=== PATIENT | female | born 1995 ===

== ENCOUNTER 2019-12-09 13:34 | Outpatient (REF) | payer OTHER, SELFPAY | END 2019-12-09 13:35 | disposition home or self-care (01) | LOC: HO.LAB 13:34 | PROVIDERS: Visit Provider Internal Medicine | DX: Z00.00 Encounter for general adult medical examination without abnormal findings (principal); E66.3 Overweight | CPT/HCPCS: 88142 ==

== ENCOUNTER 2020-02-22 12:49 | Outpatient (REF) | payer OTHER, SELFPAY ==
--- NOTE | 2020-02-22 12:54 | XR_ITS ---
EXAMINATION: XR LUMBOSACRAL SPINE CLINICAL INFORMATION: Spondylosis with myelopathy or radiculopathy. COMPARISON: None TECHNIQUE: Three views of the lumbosacral spine. FINDINGS: There is normal lumbar lordosis. The vertebral heights, alignment and disc heights are normal. There is mild ventral spondylosis L5-S1 disc levels. No lytic or sclerotic process seen. There is no acute fracture, dislocation or lytic process. The paravertebral soft tissues are normal. XR/XR lumbar spine 2-3V IMPRESSION: Mild ventral spondylosis L5-S1 disc level. No visible acute fracture or dislocation seen.
== END 2020-02-22 12:50 | disposition home or self-care (01) ==
LOC: HO.HMGCX 12:49
PROVIDERS: PCP Internal Medicine; Visit Provider Nurse Practitioner Family
DX: M47.16 Other spondylosis with myelopathy, lumbar region (principal); M47.26 Other spondylosis with radiculopathy, lumbar region
CPT/HCPCS: 72100

== ENCOUNTER 2021-02-15 04:16 | Emergency (ER) | payer OTHER, SELFPAY ==
--- NOTE | ~2021-02-15 | CT_ITS ---
EXAMINATION: CT SINUS WITHOUT CONTRAST CLINICAL INFORMATION: Right facial swelling over maxillary sinus COMPARISON: None TECHNIQUE: Noncontrast multidetector helical imaging was performed through the maxillofacial bones. Coronal and sagittal reformatted images were created. This CT examination was performed using dose optimization techniques as appropriate, variously including the following: *Automated exposure control *Adjustment of mA and/or kV according to patient size (this includes techniques or standardized protocols for targeted exams where dose is matched to indication/reason for exam; i.e. extremities or head) *Use of iterative reconstruction technique DLP: 145 mGy-cm FINDINGS: No acute maxillofacial fractures are seen. There is right facial swelling overlying the maxilla. There is mild mucosal thickening of the right maxillary sinus. Remaining paranasal sinuses are well-aerated. The uncinate process is normal bilaterally. The infundibula and middle meati are patent. The mandibular condyles are well-seated in the condylar fossa. The orbits demonstrate a normal appearance bilaterally. The globes are intact, and there are no suspicious findings to suggest retrobulbar hemorrhage. Visualized portions of the brain parenchyma are unremarkable. CT/CT sinus wo con IMPRESSION: No fracture identified. Right facial swelling overlying the maxilla.
[2021-02-15 04:17] VITALS: BP 144/94; PULSE 100; RESP 20; TEMP 36.5; O2SAT 97; BMI 25.7
[2021-02-15 04:52] LABS: MANUAL DIFF FLAG NO
[2021-02-15 04:53] LABS: Basophils Absolute Auto 0.1 X10*3/uL (0.0-0.2); Basophils Percent Auto 0.4 % (0-2); Eosinophils Absolute Auto 0.1 X10*3/uL (0.0-0.4); Eosinophils Percent Auto 0.6 % (0-4); Hemoglobin 12.3 g/dl (12.0-16.0); Imm Gran Abs Auto 0.01 X10*3/uL (0.00-0.03); Imm Gran Pct Auto 0.1 % (0.0-0.4); Lymphocytes Absolute Auto 4.8 X10*3/uL (1.2-4.9); Lymphocytes Percent Auto 38.4 % (20-40); Mean Corpuscular HGB Conc 31.5 g/dl (31.0-35.0); Mean Corpuscular Hemoglobin 26.1 pg (27.0-33.0); Mean Corpuscular Volume 82.8 fL (80.0-98.0); Mean Platelet Volume 10.3 fL (9.4-12.3); Monocytes Absolute Auto 0.9 X10*3/uL (0.1-1.2); Monocytes Percent Auto 6.8 % (2-11); Neutrophils Absolute Auto 6.7 x10*3/uL (2.0-8.3); Neutrophils Percent Auto 53.7 % (45-73); Platelet Count 392 X10*3/uL (160-400); Red Blood Count 4.71 X10*6/uL (4.20-5.50); Red Cell Distribution Width 13.5 % (11.0-16.0); White Blood Count 12.5 X10*3/uL (4.8-10.8)
--- NOTE | 2021-02-15 04:53 | ED.GENADULT ---
HPI - General Adult General Chief complaint: Allergic Reaction Stated complaint: ? allergic reaction, facial swelling Time Seen by Provider: 02/15/21 04:38 Source: patient Limitations: no limitations History of Present Illness HPI narrative: This is a 25-year-old female who last evening developed swelling on the right side of her face just lateral to her nose. The patient has some discomfort to the area. Patient denies any toothache. She notes that she was treated recently for sciatica at an urgent care and was put on prednisone and Flexeril. She denies any tongue or lip swelling, throat tightness, shortness of breath or wheezing. Related Data Previous Rx's Medication Instructions Recorded naproxen 250 mg tablet 250 mg PO BID PRN 30 Days #60 tab 02/22/20 cyclobenzaprine 5 mg tablet 5 mg PO TID PRN #10 tab 02/12/21 prednisone 50 mg tablet 50 mg PO DAILY 5 Days #5 tab 02/12/21 amoxicillin 875 mg-potassium 1 tab PO BID #20 tab 02/15/21 clavulanate 125 mg tablet (Augmentin) Allergies Allergy/AdvReac Type Severity Reaction Status Date / Time No Known Allergies Allergy Verified 02/15/21 04:24 Review of Systems Constitutional: Constitutional: Reports as per HPI and Denies fever(s) Eyes: Eyes: Reports no additional eye complaints ENT: Reports system reviewed and no additional complaints, except as documented Cardiovascular: Cardiovascular: Reports no additional cardiovascular complaints Respiratory: Respiratory: Reports no additional respiratory complaints Gastrointestinal: Gastrointestinal: Reports no additional gastrointestinal complaints Neurologic: Denies Sensory deficit (Neuro) [facility] Past Medical History Medical History Annual physical exam Overweight Surgical History Hx of bilateral breast reduction surgery Family History Family History Father Unknown family medical history Mother No problems noted. Maternal Uncle Diabetes mellitus Maternal Grandfather Diabetes mellitus Maternal Grandmother No problems noted. Paternal Grandfather No problems noted. Paternal Grandmother No problems noted. Sister No problems noted. Social History Social History Advance Directives: No Advance Directives Information Provided: Yes Patient : No Physical Exam Vital Signs: Vital Signs: Last Vital Signs Temp 97.7 F 02/15/21 04:17 Pulse 77 02/15/21 06:09 Resp 18 02/15/21 06:09 BP 119/81 02/15/21 06:09 Pulse Ox 100 02/15/21 06:09 BMI result Body Mass Index 25.7 Const: General: cooperative, no acute distress and alert Orientation/consciousness: patient oriented x3 HENMT: Other: Right facial swelling with some induration and focal swelling just lateral to the right side of the nose over the sinus, mild tenderness. No erythema or warmth. Head: Yes normal to inspection General nose exam: Normal external nose present Face and sinus: No normal facial exam and No face symmetric Eyes: General: appearance normal, both eyes and all related structures Eyelids: Yes eyelids normal Conjunctivae: conjunctivae normal Pupils: Equal, round and reactive pupils present Neck: Neck: Yes normal visual inspection and Yes supple Chest: Chest palpation & inspection: normal inspection of the chest Resp: Effort & Inspection: normal respiratory effort Auscultation: clear to auscultation bilaterally Cardio: Rate: regular rate Rhythm: regular rhythm Heart sounds: S1 normal heart sound present, S2 normal heart sound present, no gallops, no murmurs and no rubs GI: Palpation (GI): Soft to palpation, nontender and Other GI palpation findings present (Non-distended) Auscultation: normal bowel sounds Skin: General skin exam: no rashes or lesions noted Neuro: General: patient oriented x3, no focal motor deficits and CN's II-XI intact bilaterally Cranial nerves: Yes Equal, round and reactive pupils present Cognition (Neuro): normal cognition Motor exam (neuro): 5/5 motor strength present throughout Sensory Exam: No Sensory deficit (Neuro) Extrem: General: Yes normal to inspection and Yes no pedal edema Psych: Appearance: grossly normal Affect: normal affect Medical Decision Making MDM Narrative Medical decision making narrative: Patient with right facial swelling, lateral to her nose, with mild tenderness to the area. This appears to be a soft tissue infection, not an allergic phenomenon. Patient is actually on prednisone for sciatica. CT scan showed soft tissue swelling but no apparent fluid collection. There was mucosal thickening of the maxillary sinus on the right. Patient is being started on antibiotics-was given Rocephin 1 g IV in the ED and will be started on Augmentin hitting 5 mg p.o. b.i.d.. She is advised to use warm compresses and return for any worsening symptoms as this may be an early abscess which will later require drainage Lab Data Lab results reviewed: Yes I reviewed the patient's lab results. Result diagrams: 02/15/21 04:48 02/15/21 04:48 Labs: Lab Results 02/15/21 02/15/21 Range/Units 04:48 04:48 WBC 12.5 H (4.8-10.8) X10*3/uL RBC 4.71 (4.20-5.50) X10*6/uL Hgb 12.3 (12.0-16.0) g/dl Hct 39.0 (37.0-47.0) % MCV 82.8 (80.0-98.0) fL MCH 26.1 L (27.0-33.0) pg MCHC 31.5 (31.0-35.0) g/dl RDW 13.5 (11.0-16.0) % Plt Count 392 (160-400) X10*3/uL MPV 10.3 (9.4-12.3) fL Immature Gran % (Auto) 0.1 (0.0-0.4) % Neut % (Auto) 53.7 (45-73) % Lymph % (Auto) 38.4 (20-40) % Kimble % (Auto) 6.8 (2-11) % Eos % (Auto) 0.6 (0-4) % Baso % (Auto) 0.4 (0-2) % Lymph # (Auto) 4.8 (1.2-4.9) X10*3/uL Kimble # (Auto) 0.9 (0.1-1.2) X10*3/uL Eos # (Auto) 0.1 (0.0-0.4) X10*3/uL Baso # (Auto) 0.1 (0.0-0.2) X10*3/uL Abs Immat Gran (auto) 0.01 (0.00-0.03) X10*3/uL Absolute Neuts (auto) 6.7 (2.0-8.3) x10*3/uL Absolute Nucleated RBC 0.000 (0.0-0.012) X10*3/uL Nucleated RBC % (auto) 0.0 (0.0-0.2) /100WBC Sodium 140 (135-145) mmol/L Potassium 3.8 (3.3-5.1) mmol/L Chloride 105 (96-108) mmol/L Carbon Dioxide 27 (22-29) mmol/L Anion Gap 12 (12-20) BUN 23 H (9-16) mg/dL Creatinine 0.82 (0.5-1.4) mg/dL Estim Creat Clear Calc 97.7 Estimated GFR > 60 Random Glucose 84 (60-115) mg/dL Calcium 9.3 (8.4-10.2) mg/dL Total Bilirubin 0.2 (0.0-1.0) mg/dL AST 12 (5-31) U/L ALT 17 (0-31) U/L Alkaline Phosphatase 87 (39-117) U/L Total Protein 7.6 (6.5-8.0) g/dL Albumin 4.2 (3.5-5.0) g/dL Imaging Data CT sinuses: Radiologist's impression: MPRESSION: No fracture identified. Right facial swelling overlying the maxilla.? Discharge Plan Discharge Clinical Impression: Abscess of face Patient Disposition: Home, Self-Care Instructions: Abscess (ED) Additional Instructions: Apply a warm compress to the swollen area on the right side of the face for 15 minutes every 3-4 hours while awake. Stop the prednisone. Start the amoxicillin/clavulanate as prescribed. Return for any worsened symptoms such as fever, increased facial swelling. At this point you have evidence of a soft tissue infection adjacent here sinus but no drainable collection of fluid. If the swelling becomes worse over the next few days, you may need to have repeat evaluation and possible drainage of fluid. Use ibuprofen or Naprosyn for pain. Prescriptions: New amoxicillin-pot clavulanate [Augmentin] 875-125 mg tablet 1 tab PO BID Qty: 20 RF: 0 No Action naproxen 250 mg tablet 250 mg PO BID PRN (Reason: pain) 30 Days Qty: 60 RF: 0 prednisone 50 mg tablet 50 mg PO DAILY 5 Days Qty: 5 RF: 0 cyclobenzaprine 5 mg tablet 5 mg PO TID PRN (Reason: muscle spasm) Qty: 10 RF: 0 Interventions: ED Discharge Assessment Last Done: 02/15/21 06:50 Discharge Date/Time: 02/15/21 06:52
[2021-02-15 05:10] LABS: Alanine Aminotransferase 17 U/L (0-31); Albumin Level 4.2 g/dL (3.5-5.0); Alkaline Phosphatase 87 U/L (39-117); Anion Gap 12 (12-20); Aspartate Amino Transferase 12 U/L (5-31); Bilirubin Total 0.2 mg/dL (0.0-1.0); Blood Urea Nitrogen 23 mg/dL (9-16); Calcium 9.3 mg/dL (8.4-10.2); Carbon Dioxide 27 mmol/L (22-29); Chloride 105 mmol/L (96-108); Creatinine Clr Calc Pharmacy 97.7; Estimated Glomerular Filt Rate > 60; Glucose Random 84 mg/dL (60-115); Potassium 3.8 mmol/L (3.3-5.1); Sodium 140 mmol/L (135-145); Total Protein 7.6 g/dL (6.5-8.0)
[2021-02-15 06:09] VITALS: BP 119/81; PULSE 77; RESP 18; O2SAT 100
[2021-02-15] MEDS: cefTRIAXone sodium 1 GM in 0.9 % Sodium Chloride 50 ML IV (06:39)
== END 2021-02-15 06:52 | disposition home or self-care (01) ==
PROVIDERS: Emergency Provider Emergency Medicine
DX: J34.0 Abscess, furuncle and carbuncle of nose (principal); Z79.899 Other long term (current) drug therapy
CPT/HCPCS: 36415; 70486; 80053; 85025; 96365; 99284; J0696

== ENCOUNTER 2021-02-15 13:08 | Inpatient (IN) | payer OTHER, SELFPAY ==
--- NOTE | ~2021-02-15 | CT_ITS ---
EXAMINATION: CT FACIAL BONES WITH CONTRAST CLINICAL INFORMATION: Facial swelling, rule out abscess COMPARISON: CT from earlier today TECHNIQUE: 85 mL Omnipaque 350 intravenous contrast was utilized. Multidetector helical imaging was performed through the facial bones. Coronal and sagittal reformatted images were created. This CT examination was performed using dose optimization techniques as appropriate, variously including the following: *Automated exposure control *Adjustment of mA and/or kV according to patient size (this includes techniques or standardized protocols for targeted exams where dose is matched to indication/reason for exam; i.e. extremities or head) *Use of iterative reconstruction technique DLP: 556 mGy-cm FINDINGS: There is soft tissue swelling in the right maxillary and infraorbital region. No discrete fluid collection is seen to suggest abscess formation. No acute maxillofacial fractures are seen. There is mild mucosal thickening of the right maxillary sinus. Remaining paranasal sinuses are well aerated. The uncinate process is normal bilaterally. The infundibula and middle meati are patent. The mandibular condyles are well-seated in the condylar fossa. The orbits demonstrate a normal appearance bilaterally. The globes are intact, and there are no suspicious findings to suggest retrobulbar hemorrhage. Visualized portions of the brain parenchyma are unremarkable. CT/CT facial bones w con IMPRESSION: 1. Soft tissue swelling overlying the right maxilla. No focal abscess identified. 2. Mild mucosal thickening of the right maxillary sinus.
[2021-02-15 13:13] VITALS: BP 100/77; PULSE 100; O2SAT 100; BMI 32.3
[2021-02-15 19:15] VITALS: BP 120/81; PULSE 92; RESP 18; TEMP 37; O2SAT 100
[2021-02-15 21:04] LABS: MANUAL DIFF FLAG NO
[2021-02-15 21:06] LABS: Basophils Percent Auto 0.2 % (0-2); Eosinophils Percent Auto 0.3 % (0-4); Hematocrit 37.8 % (37.0-47.0); Hemoglobin 12.2 g/dl (12.0-16.0); Imm Gran Abs Auto 0.04 X10*3/uL (0.00-0.03); Imm Gran Pct Auto 0.3 % (0.0-0.4); Lymphocytes Absolute Auto 2.6 X10*3/uL (1.2-4.9); Lymphocytes Percent Auto 18.8 % (20-40); Mean Corpuscular HGB Conc 32.3 g/dl (31.0-35.0); Mean Corpuscular Volume 80.6 fL (80.0-98.0); Mean Platelet Volume 10.1 fL (9.4-12.3); Monocytes Absolute Auto 0.9 X10*3/uL (0.1-1.2); Monocytes Percent Auto 6.4 % (2-11); Neutrophils Absolute Auto 10.3 x10*3/uL (2.0-8.3); Platelet Count 397 X10*3/uL (160-400); Red Blood Count 4.69 X10*6/uL (4.20-5.50); Red Cell Distribution Width 13.4 % (11.0-16.0); White Blood Count 13.9 X10*3/uL (4.8-10.8)
[2021-02-15] MEDS: 0.9 % Sodium Chloride 1,000 ML 999 ML IV (21:06)
[2021-02-15 21:21] VITALS: PULSE 84; RESP 14
[2021-02-15] MEDS: Ketorolac Tromethamine 30 MG/ML VIAL 15 MG IVPUSH (21:21)
[2021-02-15] MEDS: Piperacillin Sodium/Tazobactam 4.5 GM in 0.9 % Sodium Chloride 100 ML IV (21:22)
[2021-02-15 21:25] LABS: Lactic Acid 0.8 mmol/L (0.5-2.0)
[2021-02-15 21:27] LABS: Alanine Aminotransferase 16 U/L (0-31); Albumin Level 4.2 g/dL (3.5-5.0); Alkaline Phosphatase 97 U/L (39-117); Anion Gap 11 (12-20); Aspartate Amino Transferase 16 U/L (5-31); Bilirubin Total 0.9 mg/dL (0.0-1.0); Blood Urea Nitrogen 11 mg/dL (9-16); C Reactive Protein 8.35 mg/dL (< or = 0.50); Calcium 9.8 mg/dL (8.4-10.2); Carbon Dioxide 27 mmol/L (22-29); Chloride 102 mmol/L (96-108); Creatinine Clr Calc Pharmacy 97.7; Estimated Glomerular Filt Rate > 60; Glucose Random 87 mg/dL (60-115); Sodium 136 mmol/L (135-145); Total Protein 8.3 g/dL (6.5-8.0)
--- NOTE | 2021-02-15 21:36 | PC.NURSE ---
med rec complete. pt only takes ibuprofen as needed for pain
[2021-02-15 21:43] LABS: COVID-19 Test Negative (Negative)
[2021-02-15 21:46] LABS: Erythrocyte Sedimentation Rate 22 MM/HR (0-20)
--- NOTE | 2021-02-15 21:54 | ED.GENADULT ---
HPI - General Adult General Chief complaint: Allergic Reaction Stated complaint: facial swelling Time Seen by Provider: 02/15/21 20:15 Source: patient Mode of arrival: ambulatory Limitations: no limitations History of Present Illness HPI narrative: 25-year-old female who presents emergency department for evaluation of right facial swelling. The patient states that on Friday night (6 days prior to evaluation) she slipped injuring her left leg and back. She was seen at an urgent care clinic and diagnosed with sciatica and started on Flexeril and prednisone. She states that yesterday at around 6:00 p.m. she had a sudden onset right facial swelling. She states that the swelling is painful and warm to the touch. She describes the pain as a pressure-like sensation which is constant and is 7/10 at its worst. She also has a headache which she describes as mild. She denied chest pain, shortness of breath, nausea, vomiting. She denied any dental pain or swelling in her mouth. The patient was seen in the emergency department this morning at 4:38 a.m. for this facial swelling. Patient had a CT scan of the face which showed soft tissue swelling only with no apparent fluid collection. There was mucosal thickening of the right maxillary sinus impression was no fracture identified. Right facial swelling overlying the maxilla. Related Data Home Medications Medication Instructions Recorded Confirmed ibuprofen 200 mg tablet 400 mg PO Q6H PRN 02/15/21 02/15/21 Previous Rx's Medication Instructions Recorded naproxen 250 mg tablet 250 mg PO BID PRN 30 Days #60 tab 02/22/20 cyclobenzaprine 5 mg tablet 5 mg PO TID PRN #10 tab 02/12/21 prednisone 50 mg tablet 50 mg PO DAILY 5 Days #5 tab 02/12/21 amoxicillin 875 mg-potassium 1 tab PO BID #20 tab 02/15/21 clavulanate 125 mg tablet (Augmentin) Allergies Allergy/AdvReac Type Severity Reaction Status Date / Time No Known Allergies Allergy Verified 02/15/21 04:24 Review of Systems Review of Systems: Yes all other systems are reviewed and are negative [facility] Past Medical History [facility] Narrative: Past medical history: None. Past surgical history: Right breast reduction 2011. Social history: She denies tobacco, alcohol and drug use. Medical History Annual physical exam Overweight Surgical History Hx of bilateral breast reduction surgery Family History Family History Father Unknown family medical history Mother No problems noted. Maternal Uncle Diabetes mellitus Maternal Grandfather Diabetes mellitus Maternal Grandmother No problems noted. Paternal Grandfather No problems noted. Paternal Grandmother No problems noted. Sister No problems noted. Social History Social History Patient Tobacco Use Status: Never used Tobacco Use of substances other than those prescribed or required for medical reasons: No Advance Directives: No Advance Directives Information Provided: No Patient : No Physical Exam Vital Signs: Vital Signs: Last Vital Signs Temp 98.6 F 02/15/21 19:15 Pulse 101 H 02/16/21 00:00 Resp 19 02/16/21 00:00 BP 137/78 02/16/21 00:00 Pulse Ox 100 02/16/21 00:00 BMI result Body Mass Index 32.3 Const: General: cooperative and no acute distress Orientation/consciousness: oriented to person and oriented to place Limitations: no limitations HENMT: Other: The patient has significant right-sided facial swelling involving the right cheek and right periorbital region. The area is warm to the touch and tender to palpation. Patient's mouth examination revealed normal dentition. She had no tenderness with palpation of the upper lower teeth on the right side, there is no tenderness palpation of her gums and no obvious gingival swelling or abscess noted. Head: Yes normal to inspection, Yes normocephalic and Yes atraumatic Ears: external ears normal General nose exam: Normal external nose present Mouth: Normal oral and palatal mucosa present Throat: Yes posterior oropharynx normal Eyes: Pupils: Equal, round and reactive pupils present Neck: Neck: Yes normal visual inspection, Yes no lymphadenopathy, Yes trachea midline and Yes supple Chest: Chest palpation & inspection: normal inspection of the chest and normal palpation of entire chest wall Resp: Effort & Inspection: normal respiratory effort and able to speak in complete sentences Auscultation: clear to auscultation bilaterally Cardio: Rate: regular rate Rhythm: regular rhythm Heart sounds: S1 normal heart sound present, S2 normal heart sound present and no murmurs GI: Inspection: Yes normal to inspection Palpation (GI): Soft to palpation, nontender and no guarding Auscultation: normal bowel sounds : General: Yes no CVA tenderness Back/Spine/Pelvis: Back: no CVA tenderness Skin: General skin exam: no rashes or lesions noted Neuro: General: oriented to person and oriented to place Cranial nerves: Yes CN's II-XII intact bilaterally and Yes Equal, round and reactive pupils present Cognition (Neuro): normal cognition Motor exam (neuro): 5/5 motor strength present throughout Extrem: General: Yes normal to inspection Psych: Appearance: grossly normal Speech and movement: Normal speech and movement present Affect: normal affect Attitude: cooperative Thought process: Normal thought process present Thought content: Normal thought content present Course Course Course Narrative: 25-year-old female who presents emergency department for evaluation of right facial swelling which began yesterday at 6:00 p.m., she was seen here in the emergency department this morning at 4:53 a.m. and diagnosed with a facial cellulitis. She had a CT scan of the face without IV contrast at the revealed facial swelling with no evidence of an abscess and thickening of the maxillary sinus mucosa. Patient was treated with ceftriaxone 1 g IV and started on Augmentin. The patient took 1 dose of Augmentin and her facial slight eyes got worse if she came back to the emergency department. Vital signs were unremarkable. Patient's facial examination is consistent with induration and a facial cellulitis. I did order repeat blood work and a CT scan of the patient's face with IV contrast To re-evaluate to make sure that there is no drainable abscess. I did order Zosyn 4.5 g IV and Toradol 15 mg IV. 2336: Laboratory evaluation: WBCs elevated 13,900, ESR is elevated at 22. CRP at 8.35. COVID-[address] scan of the patient's face with IV contrast reveals soft to the swelling overlying the right maxilla with no focal abscess identified. There is mild mucosal thickening of the right maxillary sinus. The patient's presentation is consistent with a facial cellulitis. Given the patient's progress in of her swelling, I think that she has failed outpatient oral therapy and should be admitted for IV antibiotics. I will discuss the patient's presentation with the covering hospitalist. 0019: I did discuss the patient's presentation with the covering hospitalist, and the patient will be managed on the hospital service. Medical Decision Making Lab Data Result diagrams: 02/15/21 20:57 02/15/21 20:57 Labs: Lab Results 02/15/21 02/15/21 02/15/21 Range/Units 20:57 20:57 20:57 WBC 13.9 H (4.8-10.8) X10*3/uL RBC 4.69 (4.20-5.50) X10*6/uL Hgb 12.2 (12.0-16.0) g/dl Hct 37.8 (37.0-47.0) % MCV 80.6 (80.0-98.0) fL MCH 26.0 L (27.0-33.0) pg MCHC 32.3 (31.0-35.0) g/dl RDW 13.4 (11.0-16.0) % Plt Count 397 (160-400) X10*3/uL MPV 10.1 (9.4-12.3) fL Immature Gran % (Auto) 0.3 (0.0-0.4) % Neut % (Auto) 74.0 H (45-73) % Lymph % (Auto) 18.8 L (20-40) % Gray % (Auto) 6.4 (2-11) % Eos % (Auto) 0.3 (0-4) % Baso % (Auto) 0.2 (0-2) % Lymph # (Auto) 2.6 (1.2-4.9) X10*3/uL Gray # (Auto) 0.9 (0.1-1.2) X10*3/uL Eos # (Auto) 0.0 (0.0-0.4) X10*3/uL Baso # (Auto) 0.0 (0.0-0.2) X10*3/uL Abs Immat Gran (auto) 0.04 H (0.00-0.03) X10*3/uL Absolute Neuts (auto) 10.3 H (2.0-8.3) x10*3/uL Absolute Nucleated RBC 0.000 (0.0-0.012) X10*3/uL Nucleated RBC % (auto) 0.0 (0.0-0.2) /100WBC ESR 22 H (0-20) MM/HR Sodium 136 (135-145) mmol/L Potassium 4.0 (3.3-5.1) mmol/L Chloride 102 (96-108) mmol/L Carbon Dioxide 27 (22-29) mmol/L Anion Gap 11 L (12-20) BUN 11 D (9-16) mg/dL Creatinine 0.75 (0.5-1.4) mg/dL Estim Creat Clear Calc 97.7 Estimated GFR > 60 Random Glucose 87 (60-115) mg/dL Lactic Acid (0.5-2.0) mmol/L Calcium 9.8 (8.4-10.2) mg/dL Total Bilirubin 0.9 (0.0-1.0) mg/dL AST 16 (5-31) U/L ALT 16 (0-31) U/L Alkaline Phosphatase 97 (39-117) U/L C-Reactive Protein 8.35 H (< or = 0.50) mg/dL Total Protein 8.3 H (6.5-8.0) g/dL Albumin 4.2 (3.5-5.0) g/dL COVID-19 (KYLE) (Negative) COVID-19 Clin Com 02/15/21 02/15/21 Range/Units 20:57 20:57 WBC (4.8-10.8) X10*3/uL RBC (4.20-5.50) X10*6/uL Hgb (12.0-16.0) g/dl Hct (37.0-47.0) % MCV (80.0-98.0) fL MCH (27.0-33.0) pg MCHC (31.0-35.0) g/dl RDW (11.0-16.0) % Plt Count (160-400) X10*3/uL MPV (9.4-12.3) fL Immature Gran % (Auto) (0.0-0.4) % Neut % (Auto) (45-73) % Lymph % (Auto) (20-40) % Gray % (Auto) (2-11) % Eos % (Auto) (0-4) % Baso % (Auto) (0-2) % Lymph # (Auto) (1.2-4.9) X10*3/uL Gray # (Auto) (0.1-1.2) X10*3/uL Eos # (Auto) (0.0-0.4) X10*3/uL Baso # (Auto) (0.0-0.2) X10*3/uL Abs Immat Gran (auto) (0.00-0.03) X10*3/uL Absolute Neuts (auto) (2.0-8.3) x10*3/uL Absolute Nucleated RBC (0.0-0.012) X10*3/uL Nucleated RBC % (auto) (0.0-0.2) /100WBC ESR (0-20) MM/HR Sodium (135-145) mmol/L Potassium (3.3-5.1) mmol/L Chloride (96-108) mmol/L Carbon Dioxide (22-29) mmol/L Anion Gap (12-20) BUN (9-16) mg/dL Creatinine (0.5-1.4) mg/dL Estim Creat Clear Calc Estimated GFR Random Glucose (60-115) mg/dL Lactic Acid 0.8 (0.5-2.0) mmol/L Calcium (8.4-10.2) mg/dL Total Bilirubin (0.0-1.0) mg/dL AST (5-31) U/L ALT (0-31) U/L Alkaline Phosphatase (39-117) U/L C-Reactive Protein (< or = 0.50) mg/dL Total Protein (6.5-8.0) g/dL Albumin (3.5-5.0) g/dL COVID-19 ([facility]) Negative (Negative) COVID-19 Clin Com See Note Discharge Plan Discharge Patient Disposition: Admitted As Inpatient Interventions: LWBS Worksheet Last Done: 02/15/21 16:59
[2021-02-15] MEDS: iohexoL 350 MG/ML 100 ML INFUS..BTL 85 ML IV (22:43)
[2021-02-16] VITALS (9 sets, daily range): BP systolic 104–148; BP diastolic 61–84; PULSE 80–104; RESP 14–20; TEMP 36.2–37.7; O2SAT 97–100
--- NOTE | 2021-02-16 00:59 | P.HPHOSP_ITS ---
History of Present Illness Date of Service: 02/16/21 Chief Complaint: facial swelling 25-year-old female with no significant past medical history presents to the hospital with right-sided facial swelling. 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 does but then continued to have worsening swelling and pressure in her right face sided to come to the hospital by 2:00 p.m.. On my exam of the patient, she has significant swelling of her right face, she denies any fever or chills, she does not have any pain but feels a lot of pressure, has no difficulty with bleeding from the sinuses, no significant difficulty swallowing, no chest pain abdominal pain nausea or vomiting, no shortness of breath, no diarrhea constipation, no urinary symptoms and no lower extremity edema On arrival to the ED patient hemodynamically stable with no significant abnormal vitals Labs are significant for WBC count of 13.9, which worsened from earlier this morning of 12.5, ESR of 22, CRP of a 0.35, otherwise labs unremarkable. Facial CT showed soft tissue swelling overlying the right maxilla no focal abscess identified, mild mucosal thickening of the right maxillary sinus patient will be admitted for further management of cellulitis with IV antibiotics given her failed outpatient therapy and significant progression of her cellulitis Review of Systems Review of Systems: Yes all other systems are reviewed and are negative PMFSH Medical History Annual physical exam Overweight Family History Father Unknown family medical history Mother No problems noted. Maternal Uncle Diabetes mellitus Maternal Grandfather Diabetes mellitus Maternal Grandmother No problems noted. Paternal Grandfather No problems noted. Paternal Grandmother No problems noted. Sister No problems noted. Surgical History Hx of bilateral breast reduction surgery Social History Patient Tobacco Use Status: Never used Tobacco Use of substances other than those prescribed or required for medical reasons: No Advance Directives: No Advance Directives Information Provided: No Patient : No Meds Allergies Allergy/AdvReac Type Severity Reaction Status Date / Time No Known Allergies Allergy Verified 02/15/21 04:24 Home Medications Medication Instructions Recorded Confirmed Last Taken Type ibuprofen 200 mg tablet 400 mg PO Q6H PRN 02/15/21 02/15/21 Unknown History Physical Exam Vital Signs and Narrative: Vital Signs: Last Vital Signs Temp 98.3 F 02/16/21 00:50 Pulse 97 02/16/21 00:50 Resp 14 02/16/21 00:50 BP 123/77 02/16/21 00:50 Pulse Ox 100 02/16/21 00:50 BMI result Body Mass Index 32.3 Const: General: cooperative and no acute distress Orientation/consciousness: patient oriented x3 HENMT: Other: right facial swelling, warmth, extending throughout the whole right face from just below the right eye to the jaw Eyes: General: appearance normal, both eyes and all related structures Pupils: Equal, round and reactive pupils present Resp: Effort & Inspection: normal respiratory effort Auscultation: clear to auscultation bilaterally Cardio: Rate: regular rate Rhythm: regular rhythm GI: Palpation (GI): Soft to palpation Auscultation: normal bowel sounds Skin: General skin exam: no rashes or lesions noted Neuro: General: patient oriented x3 Cranial nerves: Yes Equal, round and reactive pupils present Cognition (Neuro): normal cognition Extrem: General: Yes normal to inspection and Yes no pedal edema Results Labs CBC and Chem 7: 02/15/21 20:57 02/15/21 20:57 Labs: Laboratory Results - last 24 hr 02/15/21 02/15/21 02/15/21 20:57 20:57 20:57 MCV 80.6 MCH 26.0 L MCHC 32.3 RDW 13.4 Plt Count 397 MPV 10.1 Immature Gran % (Auto) 0.3 Neut % (Auto) 74.0 H Lymph % (Auto) 18.8 L Barnes % (Auto) 6.4 Eos % (Auto) 0.3 Baso % (Auto) 0.2 Lymph # (Auto) 2.6 Barnes # (Auto) 0.9 Eos # (Auto) 0.0 Baso # (Auto) 0.0 Abs Immat Gran (auto) 0.04 H Absolute Neuts (auto) 10.3 H Absolute Nucleated RBC 0.000 Nucleated RBC % (auto) 0.0 ESR 22 H Anion Gap 11 L Estim Creat Clear Calc 97.7 Estimated GFR > 60 Random Glucose 87 Lactic Acid Calcium 9.8 Total Bilirubin 0.9 AST 16 ALT 16 Alkaline Phosphatase 97 C-Reactive Protein 8.35 H Total Protein 8.3 H Albumin 4.2 COVID-19 (KYLE) COVID-19 Clin Com 02/15/21 02/15/21 20:57 20:57 MCV MCH MCHC RDW Plt Count MPV Immature Gran % (Auto) Neut % (Auto) Lymph % (Auto) Barnes % (Auto) Eos % (Auto) Baso % (Auto) Lymph # (Auto) Barnes # (Auto) Eos # (Auto) Baso # (Auto) Abs Immat Gran (auto) Absolute Neuts (auto) Absolute Nucleated RBC Nucleated RBC % (auto) ESR Anion Gap Estim Creat Clear Calc Estimated GFR Random Glucose Lactic Acid 0.8 Calcium Total Bilirubin AST ALT Alkaline Phosphatase C-Reactive Protein Total Protein Albumin COVID-19 (KYLE) Negative COVID-19 Clin Com See Note Imaging Radiologist's Impressions: Impressions Face CT 02/15/21 22:48 IMPRESSION: 1. Soft tissue swelling overlying the right maxilla. No focal abscess identified. 2. Mild mucosal thickening of the right maxillary sinus. Assessment and Plan (1) Cellulitis of face: Status: Acute 25-year-old female with no significant past medical history presents to the hospital with complaints of worsening swelling of right face found to have a right face cellulitis failed outpatient therapy # cellulitis of face - patient was treated with Augmentin outpatient but had significant worsening of her right facial swelling therefore will need admission for IV antibiotics - follow cultures - monitor edema DVT prophylaxis: Lovenox Quality Stroke Does the patient have a stroke diagnosis?: No VTE Prior VTE?: No VTE Risk Level:: Medical - moderate - high VTE Device Contraindication: Treatment Not Indicated VTE Drug Contraindication: N/A - Med Ordered
[2021-02-16] MEDS: ceFAZolin Sodium/Dextrose,Iso 2 GM/50 ML PIGGYBACK IV ×3 (02:42→17:57)
[2021-02-16] MEDS: Enoxaparin Sodium 40 MG/0.4 ML SYRINGE SUBCUT ×2 (02:42→20:27)
[2021-02-16 06:52] LABS: MANUAL DIFF FLAG NO
[2021-02-16 06:56] LABS: Basophils Percent Auto 0.2 % (0-2); Eosinophils Absolute Auto 0.1 X10*3/uL (0.0-0.4); Eosinophils Percent Auto 0.9 % (0-4); Hematocrit 34.1 % (37.0-47.0); Hemoglobin 10.9 g/dl (12.0-16.0); Imm Gran Abs Auto 0.04 X10*3/uL (0.00-0.03); Imm Gran Pct Auto 0.4 % (0.0-0.4); Lymphocytes Absolute Auto 2.9 X10*3/uL (1.2-4.9); Lymphocytes Percent Auto 28.2 % (20-40); Mean Corpuscular Hemoglobin 25.9 pg (27.0-33.0); Mean Platelet Volume 9.9 fL (9.4-12.3); Monocytes Absolute Auto 0.9 X10*3/uL (0.1-1.2); Monocytes Percent Auto 8.6 % (2-11); Neutrophils Absolute Auto 6.3 x10*3/uL (2.0-8.3); Neutrophils Percent Auto 61.7 % (45-73); Platelet Count 328 X10*3/uL (160-400); Red Blood Count 4.21 X10*6/uL (4.20-5.50); Red Cell Distribution Width 13.4 % (11.0-16.0); White Blood Count 10.2 X10*3/uL (4.8-10.8)
[2021-02-16 07:19] LABS: Anion Gap 10 (12-20); Blood Urea Nitrogen 13 mg/dL (9-16); Calcium 8.8 mg/dL (8.4-10.2); Carbon Dioxide 26 mmol/L (22-29); Chloride 105 mmol/L (96-108); Creatinine Clr Calc Pharmacy 97.7; Estimated Glomerular Filt Rate > 60; Glucose Random 86 mg/dL (60-115); Potassium 3.7 mmol/L (3.3-5.1); Sodium 137 mmol/L (135-145)
--- NOTE | 2021-02-16 09:28 | PM.EVENT ---
Event Note Date of Service: 02/16/21 Event Note: I saw and examined this patient and reviewed record including meds, labs, vitals. a/p: today as outlined in H and P from this morning, and adding infectious disease consultation
[2021-02-16] MEDS: Acetaminophen 325 MG TABLET 650 MG PO ×2 (09:35→15:29)
[2021-02-16] MEDS: 0.9 % Sodium Chloride Flush 3 ML SYRINGE IVFLUSH ×3 (09:37→20:27)
--- NOTE | 2021-02-16 10:10 | MHC.CM.PN ---
EMR REVIEWED, PT ADMITTED W/FACIAL CELLULITIS, CM MET W/PT WHO IS A&OX4, REPORTS SHE LIVES IN AN APT W/HER SISTER, WORKS [employer] IS INDEPENDENT W/ALL CARE, NO DME AND NO HOME SERVICES, PT VERIFIES PCP IS OLIVIA WATSON AND WOULD LIKE TO COMPLETE A HCP PRIOR TO D/C. D/C PLAN: HOME SELF-CARE, PARENTS FOR TRANSPORT
--- NOTE | 2021-02-16 16:15 | MHC.CM.PN ---
CM MET W/PT TO COMPLETE HCP, PT ASSIGNED HER SISTER MARITA OLIVO [phone] HER HEALTH CARE AGENT AND HER STEPFATHER ISIDRO PURVIS [phone] HER ALTERNATE, PT PROVIDED W/EDUCATIONAL INFORMATION, ORIGINAL AND 2 COPIES, COPY UPLOADED TO [email or web address] AND PLACED IN CHART.
[2021-02-16] MEDS: vancomycin HCL 1,250 MG in 0.9 % Sodium Chloride 250 ML 166.67 MG IV (22:13)
[2021-02-16] MEDS: methylPREDNISolone Sod Succ 40 MG/ML VIAL IVPUSH (22:13)
[2021-02-16] MEDS: oxyCODONE HCl Immed Release 5 MG TABLET PO (22:19)
--- NOTE | 2021-02-16 22:48 | P.CNID_ITS ---
History of Present Illness Data of Consult Service Date: 02/16/21 Requesting physician: Jez Lehman Primary Care Provider: MD ALDA Maki Reason for consult: right facial swelling She presents with right facial discomfort and swelling. She had fallen four days ago and came to ER. She came to ER next day and was given Flexoril and Prednisone on 02/12.\ Next day she developed right facial swelling and given po Augmentin and felt worse. 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 Review of Systems Review of Systems: Yes all other systems are reviewed and are negative [facility] Past Medical History Medical History Annual physical exam Overweight Family History Family History Father Unknown family medical history Mother No problems noted. Maternal Uncle Diabetes mellitus Maternal Grandfather Diabetes mellitus Maternal Grandmother No problems noted. Paternal Grandfather No problems noted. Paternal Grandmother No problems noted. Sister No problems noted. Family history: reviewed and not pertinent Surgical History Surgical History Hx of bilateral breast reduction surgery Social History Social History Household Members: Other Household Members Other:: sister Housing: House Do you presently have visiting nurse or other home services: No Patient Tobacco Use Status: Never used Tobacco Substance Use Type: Marijuana service: No Current occupational status: employed Meds Allergies Allergy/AdvReac Type Severity Reaction Status Date / Time No Known Allergies Allergy Verified 02/15/21 04:24 Active Medications: Current Medications Acetaminophen (Acetaminophen 325 Mg Tablet) 650 mg PO Q6H PRN PRN Reason: Pain, Mild (Pain Scale 1-3) Last Admin: 02/16/21 15:29 Dose: 650 mg Documented by: Cyclobenzaprine HCl (Cyclobenzaprine Hcl 5 Mg Tablet) 5 mg PO TID PRN PRN Reason: muscle spasm Docusate Sodium (Docusate Sodium 100 Mg Capsule) 100 mg PO DAILY PRN PRN Reason: Constipation Enoxaparin Sodium (Enoxaparin Sodium 40 Mg/0.4 Ml Syringe) 40 mg SUBCUT BEDTIME [facility] Last Admin: 02/16/21 20:27 Dose: 40 mg Documented by: Cefazolin Sodium/Dextrose (Ancef) 2 gm in 50 mls @ 100 mls/hr IV Q8H [facility] Last Infusion: 02/16/21 18:27 Dose: Infused Documented by: Vancomycin HCl 1,250 mg/ (Sodium Chloride) 250 mls @ 166.667 mls/hr IV Q12H [facility] Last Admin: 02/16/21 22:13 Dose: 166.67 mls/hr Documented by: Ampicillin Sodium/Sulbactam (Sodium 3 gm/ Sodium Chloride) 100 mls @ 200 mls/hr IV Q8H [facility] Methylprednisolone Sodium Succinate (Methylprednisolone Sod Succ 40 Mg/Ml Vial) 40 mg IVPUSH Q24H [facility] Last Admin: 02/16/21 22:13 Dose: 40 mg Documented by: Ondansetron HCl (Ondansetron Hcl 4 Mg/2 Ml Vial) 4 mg IVPUSH Q8H PRN PRN Reason: Nausea and Vomiting Oxycodone HCl (Oxycodone Hcl Immed Release 5 Mg Tablet) 5 mg PO Q6H PRN PRN Reason: Pain, Severe (Pain Scale 7-10) Last Admin: 02/16/21 22:19 Dose: 5 mg Documented by: Pharmacy Consult (Consult Rx Vancomycin Dosing) 1 each MISCELLANE DAILY PRN PRN Reason: Consult order Sodium Chloride (0.9 % Sodium Chloride Flush 3 Ml Syringe) 3 ml IVFLUSH QSHIFT [facility] Last Admin: 02/16/21 20:27 Dose: 3 ml Documented by: Home Medications Medication Instructions Recorded Confirmed Last Taken Type ibuprofen 200 mg tablet 400 mg PO Q6H PRN 02/15/21 02/15/21 Unknown History Physical Exam Vital Signs: Vital Signs: Last Vital Signs Temp 99.5 F 02/16/21 20:32 Pulse 97 02/16/21 20:00 Resp 18 02/16/21 20:00 BP 119/70 02/16/21 20:00 Pulse Ox 97 02/16/21 20:00 BMI result Body Mass Index 32.3 Const: General: cooperative HENMT: Other: right facial swelling and lip swelling Ears: hearing grossly normal bilaterally Mouth: Normal oral and palatal mucosa present Eyes: General: appearance normal, both eyes and all related structures Resp: Effort & Inspection: normal respiratory effort Cardio: Rate: regular rate Rhythm: regular rhythm GI: Palpation (GI): Soft to palpation and nontender Skin: General skin exam: no rashes or lesions noted Results Labs CBC & Chem 7: 02/16/21 06:47 02/16/21 06:47 Labs: Short CBC 02/16/21 Range/Units 06:47 WBC 10.2 (4.8-10.8) X10*3/uL Hgb 10.9 L (12.0-16.0) g/dl Hct 34.1 L (37.0-47.0) % Plt Count 328 (160-400) X10*3/uL BMP 02/16/21 06:47 Sodium 137 Potassium 3.7 Chloride 105 Carbon Dioxide 26 BUN 13 Creatinine 0.75 Calcium 8.8 D Assessment and Plan (1) Cellulitis of face: Status: Acute She has likely sinusitis cause of symptoms She has possible gram negative and gram positive organism It doesnt seem to be allergic reaction to Prednisone or related to fall Unasyn and Vancomycin cover above. Consider Prednisone if not improving next day or two
[2021-02-16] MEDS: Ampicillin Sodium/Sulbactam Na 3 GM in 0.9 % Sodium Chloride 100 ML IV (23:48)
[2021-02-17 03:46] VITALS: BP 109/58; PULSE 81; RESP 18; TEMP 37.3; O2SAT 98
[2021-02-17] MEDS: Ampicillin Sodium/Sulbactam Na 3 GM in 0.9 % Sodium Chloride 100 ML IV ×3 (06:29→22:46)
--- NOTE | 2021-02-17 06:30 | PM.EVENT ---
Event Note Date of Service: 02/17/21 Event Note: pt complaining that pain and welling of her face worsening. added steroids as well as vancomycin and oxy for pain control
[2021-02-17 07:40] VITALS: BP 116/69; PULSE 95; RESP 18; TEMP 37.1; O2SAT 100
--- NOTE | 2021-02-17 07:52 | PHA.MEDREC ---
Pharmacy Consult ? Medication Reconciliation RN completed med rec, pharmacy reviewed.
--- NOTE | 2021-02-17 08:09 | P.PNIM_ITS ---
Subjective Subjective Date of Service: 02/17/21 Interval History: f/u facial cellulitis and swelling, swelling is better Review of Systems no fever mild pain in the face Physical Exam Vital Signs: Vital Signs: Last Vital Signs Temp 98.7 F 02/17/21 07:40 Pulse 95 02/17/21 07:40 Resp 18 02/17/21 07:40 BP 116/69 02/17/21 07:40 Pulse Ox 100 02/17/21 07:40 BMI result Body Mass Index 32.3 Const: Other: General: AO X 3, no acute distress mild left face swelling Resp: CTA bilateral CVS: S1,S2,RRR GI: +BS, NT, no distention Skin: No rash Neuro: motor grossly intact Psych: appropriate affect Objective Data Active Medications Acetaminophen (Acetaminophen 325 Mg Tablet) 650 mg PO Q6H PRN PRN Reason: Pain, Mild (Pain Scale 1-3) Last Admin: 02/16/21 15:29 Dose: 650 mg Documented by: NAHUM Cyclobenzaprine HCl (Cyclobenzaprine Hcl 5 Mg Tablet) 5 mg PO TID PRN PRN Reason: muscle spasm Docusate Sodium (Docusate Sodium 100 Mg Capsule) 100 mg PO DAILY PRN PRN Reason: Constipation Enoxaparin Sodium (Enoxaparin Sodium 40 Mg/0.4 Ml Syringe) 40 mg SUBCUT BEDTIME [facility] Last Admin: 02/16/21 20:27 Dose: 40 mg Documented by: LAURI Vancomycin HCl 1,250 mg/ (Sodium Chloride) 250 mls @ 166.667 mls/hr IV Q12H [facility] Last Infusion: 02/16/21 23:53 Dose: 0 mls/hr Documented by: LAURI Ampicillin Sodium/Sulbactam (Sodium 3 gm/ Sodium Chloride) 100 mls @ 200 mls/hr IV Q8H [facility] Last Infusion: 02/17/21 07:06 Dose: 0 mls/hr Documented by: LAURI Methylprednisolone Sodium Succinate (Methylprednisolone Sod Succ 40 Mg/Ml Vial) 40 mg IVPUSH Q24H [facility] Last Admin: 02/16/21 22:13 Dose: 40 mg Documented by: LAURI Ondansetron HCl (Ondansetron Hcl 4 Mg/2 Ml Vial) 4 mg IVPUSH Q8H PRN PRN Reason: Nausea and Vomiting Oxycodone HCl (Oxycodone Hcl Immed Release 5 Mg Tablet) 5 mg PO Q6H PRN PRN Reason: Pain, Severe (Pain Scale 7-10) Last Admin: 02/16/21 22:19 Dose: 5 mg Documented by: LAURI Pharmacy Consult (Consult Rx Vancomycin Dosing) 1 each MISCELLANE DAILY PRN PRN Reason: Consult order Sodium Chloride (0.9 % Sodium Chloride Flush 3 Ml Syringe) 3 ml IVFLUSH QSHIFT [facility] Last Admin: 02/16/21 20:27 Dose: 3 ml Documented by: LAURI Labs CBC & Chem 7: 02/16/21 06:47 02/16/21 06:47 Microbiology Microbiology Results: Microbiology 02/15/21 21:19 Blood Culture - Preliminary Blood - Venous No growth after 24 hours. 02/15/21 20:57 Blood Culture - Preliminary Blood - Venous No growth after 24 hours. Assessment and Plan (1) Cellulitis of face: Status: Acute Assessment and Plan: ? 25-year-old female with no significant past medical history presents to the hospital with complaints of worsening swelling of right face found to have a right face cellulitis failed outpatient therapy # ? cellulitis of face--probably from sinusitis, failed outpatient Augmentin. Started on Kefzol and now changed to Ampiccilin and Vanco, will check with ID when to transition to PO as she desires to go home today Quality Stroke Does the patient have a stroke diagnosis?: No VTE Prior VTE?: No VTE Risk Level:: Medical - moderate - high VTE Device Contraindication: Treatment Not Indicated VTE Drug Contraindication: N/A - Med Ordered
--- NOTE | 2021-02-17 08:16 | P.DS_ITS ---
DS: Providers Provider Date of Service: 02/18/21 <BONY Akins - Last Filed: 02/18/21 10:36> Date of admission: 02/16/21 00:58 <Jez Lehman MD - Last Filed: 03/24/21 16:03> Date of discharge: 02/18/21 <BONY Akins - Last Filed: 02/18/21 10:36> Primary care physician: Lashae Thomas MD <Jez Lehman MD - Last Filed: 03/24/21 16:03> Consults: 02/16/21 09:27 Consult to Infectious Diseases Routine Consulting Provider: Mare Ragland Reason for consultation: Facial cellulitis Has provider been notified: No <Jez Lehman MD - Last Filed: 03/24/21 16:03> Attending physician on discharge: Jhony Pappas <BONY Akins - Last Filed: 02/18/21 10:36> Discharging clinician: Madiha Bundy <BONY Akins - Last Filed: 02/18/21 10:36> DS: Diagnosis Discharge Diagnosis (1) Cellulitis of face: Status: Acute <Jez Lehman MD - Last Filed: 03/24/21 16:03> DS: Summary Hospital Course Hospital Course: [facility] Complaint: facial swelling ?25-year-old female with? no significant past medical history presents to the hospital with? right-sided facial swelling.? 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 with complaints of right-sided facial swelling, found to have cellulitis of the right face, given ceftriaxone in the ED and prescribed Augmentin and discharged, patient picked up her medications are an 80 a.m., took 1 p.o. does but then continued to have worsening swelling and pressure in her right face sided to come to the hospital by 2:00 p.m..? On my e xam of the patient, she has significant swelling of her right face, she denies any fever or chills, she does not have any pain but feels a lot of pressure, has no difficulty with bleeding from the sinuses, no significant difficulty swallowing, no chest pain abdominal pain nausea or vomiting, no shortness of breath, no diarrhea constipation, no urinary symptoms and no lower extremity edema On arrival to the ED patient hemodynamically stable with no significant abnormal vitals Labs are significant for? WBC count of 13.9, which worsened from earlier this morning of 12.5, ESR of 22, CRP of a 0.35, otherwise labs unremarkable.? Facial CT showed soft tissue swelling overlying the right maxilla no focal abscess identified, mild mucosal thickening of the right maxillary sinus ?patient will be admitted for further management of cellulitis with IV antibiotics given her failed outpatient therapy and significant progression of her cellulitis Hospital course: She was treated for facial cellulitis as an outpatient with Augmentin. Her pain and swelling did not improve so she was admitted to the hospital. He was initially treated with IV Kefzol. She was seen by ID and anibiotics were upgraded to Unasyn and Vancomycin. IV Solumedrol was also added and she has had significant improvement with both erythema and swelling. She has no fever or leukocytosis and is now stable for discharge home on oral antibiotics. She will be discharged home with doxycycline and prednisone per ID recommendation. She is encouraged to follow up with per pcp or to return to the ED if swelling returns. <Jez Lehman MD - Last Filed: 03/24/21 16:03> Time Spent with Patient Time attestation: Total time spent providing and/or coordinating discharge services: <Jez Lehman MD - Last Filed: 03/24/21 16:03> Discharge coordination time: Greater than 30 minutes <BONY Akins - Last Filed: 02/18/21 10:36> Quality: Stroke Does the patient have a stroke diagnosis?: No <BONY Akins - Last Filed: 02/18/21 10:36> Physical Exam Verdana 4l Vital Signs: Verdana 4d Verdana 4d Vital Signs: Verdana 4d Verdana 4Bd Last Vital Signs Verdana 4d Legal Receptionist New 4d Legal Receptionist New 4d Temp 98.7 F 02/17/21 07:40 Legal Receptionist New 4d Pulse 95 02/17/21 07:40 Legal Receptionist New 4d Resp 18 02/17/21 07:40 BP 116/69 02/17/21 07:40 Pulse Ox 100 02/17/21 07:40 BMI result Body Mass Index 32.3 <Jez Lehman MD - Last Filed: 03/24/21 16:03> Const: Nutritional Appearance: well nourished <BONY Akins - Last Filed: 02/18/21 10:36> Orientation/consciousness: patient oriented x3 <BONY Akins - Last Filed: 02/18/21 10:36> HENMT: Head: Yes normocephalic and Yes atraumatic <BONY Akins - Last Filed: 02/18/21 10:36> Eyes: Sclerae: sclerae normal <BONY Akins - Last Filed: 02/18/21 10:36> Resp: Effort & Inspection: normal respiratory effort and no respiratory distress <BONY Akins - Last Filed: 02/18/21 10:36> Cardio: Rate: regular rate <BONY Akins - Last Filed: 02/18/21 10:36> Rhythm: regular rhythm <BONY Akins - Last Filed: 02/18/21 10:36> GI: Palpation (GI): Soft to palpation and nontender <BONY Akins - Last Filed: 02/18/21 10:36> Skin: Other: no erythema or tenderness to right side of face. minimal swelling <BONY Akins - Last Filed: 02/18/21 10:36> Neuro: General: patient oriented x3 <BONY Akins - Last Filed: 02/18/21 10:36> Cranial nerves: Yes CN's II-XII intact bilaterally and Yes Bilaterally intact EOM present <BONY Akins - Last Filed: 02/18/21 10:36> DS: Data Data Completed and Pending Labs on day of discharge: Preliminary micro results at discharge 02/15/21 21:19 Blood Culture - Preliminary Blood - Venous No growth after 24 hours. 02/15/21 20:57 Blood Culture - Preliminary Blood - Venous No growth after 24 hours. <Jez Lehman MD - Last Filed: 03/24/21 16:03> Discharge Plan Discharge Anticipated Discharge Date/Time: 02/17/21 08:14 <Jez Lehman MD - Last Filed: 03/24/21 16:03> Patient Disposition: Home, Self-Care <Jez Lehman MD - Last Filed: 03/24/21 16:03> Discharge Diagnosis: Facial Cellulitis <Jez Lehman MD - Last Filed: 03/24/21 16:03> Facial Cellulitis <BONY Akins - Last Filed: 02/18/21 10:36> Referrals: Lashae Thomas MD [Primary Care Provider] - 1 Week <Jez Lehman MD - Last Filed: 03/24/21 16:03> Discharge Medications: Discontinued amoxicillin-pot clavulanate [Augmentin] 875-125 mg tablet 1 tab PO BID Qty: 20 0RF Label Comments: pt prescribed this morning prior to admit to hospital prednisone 50 mg tablet 50 mg PO DAILY 5 Days Qty: 5 0RF Label Comments: pt prescribed this morning prior to admit to hospital No Action No Known Home Meds 0RF <Jez Lehman MD - Last Filed: 03/24/21 16:03> Discharge Orders: Discharge Order (Routine); Ordered 02/18/21 Ordered By: Madiha Bundy <Jez Lehman MD - Last Filed: 03/24/21 16:03> Diet: advance to usual diet <Jez Lehman MD - Last Filed: 03/24/21 16:03> advance to usual diet <BONY Akins - Last Filed: 02/18/21 10:36> Activity on Discharge: As tolerated <Jez Lehman MD - Last Filed: 03/24/21 16:03> As tolerated <BONY Akins - Last Filed: 02/18/21 10:36> Stand Alone Forms: Patient Portal Discharge page, Work/School Release <Jez Lehman MD - Last Filed: 03/24/21 16:03> Care Plan Goals: complete resolution of facial cellulitis <Jez Lehman MD - Last Filed: 03/24/21 16:03> Health Concerns: facial cellulitis <Jez Lehman MD - Last Filed: 03/24/21 16:03> Plan of Treatment: Take antibiotics and steroids as prescribed and follow up with your Doctor in a week or sooner if swelling returns can take ibuprofen or naproxen as needed but not both at the same time (both are listed as home medications) <Jez Lehman MD - Last Filed: 03/24/21 16:03> Assessment: As above <Jez Lehman MD - Last Filed: 03/24/21 16:03> Discharge Date/Time: 02/18/21 13:10 <Jez Lehman MD - Last Filed: 03/24/21 16:03>
[2021-02-17 09:35] LABS: Estimated Glomerular Filt Rate > 60
[2021-02-17] MEDS: 0.9 % Sodium Chloride Flush 3 ML SYRINGE IVFLUSH ×3 (10:19→23:39)
[2021-02-17] MEDS: vancomycin HCL 1,250 MG in 0.9 % Sodium Chloride 250 ML 166.67 MG IV ×2 (10:20→23:39)
[2021-02-17 11:59] VITALS: BP 117/76; PULSE 72; RESP 18; TEMP 36.6; O2SAT 99
[2021-02-17] MEDS: Acetaminophen 325 MG TABLET 650 MG PO ×2 (12:22→18:23)
[2021-02-17 15:44] VITALS: BP 130/72; PULSE 71; RESP 17; TEMP 37.1; O2SAT 96
[2021-02-17 19:48] VITALS: BP 132/78; PULSE 83; RESP 17; TEMP 36.6; O2SAT 99
[2021-02-17] MEDS: methylPREDNISolone Sod Succ 40 MG/ML VIAL IVPUSH (21:06)
[2021-02-17] MEDS: Enoxaparin Sodium 40 MG/0.4 ML SYRINGE SUBCUT (21:06)
[2021-02-17] MEDS: oxyCODONE HCl Immed Release 5 MG TABLET PO (21:06)
[2021-02-18] VITALS: BP 134/81; PULSE 74; RESP 17; TEMP 36.1; O2SAT 98
[2021-02-18 03:36] VITALS: BP 130/70; PULSE 72; RESP 17; TEMP 36.7; O2SAT 97
[2021-02-18] MEDS: Ampicillin Sodium/Sulbactam Na 3 GM in 0.9 % Sodium Chloride 100 ML IV (06:40)
[2021-02-18] MEDS: 0.9 % Sodium Chloride Flush 3 ML SYRINGE IVFLUSH (07:32)
[2021-02-18 07:34] VITALS: BP 131/81; PULSE 73; RESP 18; TEMP 36.2; O2SAT 97
[2021-02-18 09:28] LABS: Vancomycin Trough 6.1 mcg/mL (10.0-20.0)
--- NOTE | 2021-02-18 09:51 | HE.PHANOTE ---
VANCOMYCIN DOSING ADDENDUM Previous dose of 1250mg Q12H with trough of 6.1; increased dose to 1500mg Q12H with predicted AUC of 449. Trough to be drawn 02/19/21 @1999. Magalie Gonzalez RPh
[2021-02-18 10:09] LABS: Creatinine Clr Calc Pharmacy 101.7; Estimated Glomerular Filt Rate > 60
[2021-02-18] MEDS: vancomycin HCL 1,500 MG in 0.9 % Sodium Chloride 500 ML 333.33 MG IV (10:22)
[2021-02-18] MEDS: Acetaminophen 325 MG TABLET 650 MG PO (10:26)
--- NOTE | 2021-02-18 10:49 | MHC.CM.PN ---
PT CLEARED TO DC HOME WITH NO SERVICES PT TO ARRANGE TRANSPORT
== END 2021-02-18 13:10 | disposition home or self-care (01) | DRG 383 ==
LOC: HO.ED 23:40 → HO.EDOVER 02-16 01:16 → HO.S3 02-16 13:44
PROVIDERS: Admitting Provider Internal Medicine; Emergency Provider Emergency Medicine Emergency Medical Services; PCP Internal Medicine; Visit Provider Physician Assistant Medical
DX: L03.211 Cellulitis of face (principal); J32.0 Chronic maxillary sinusitis; Z20.822 Contact with and (suspected) exposure to COVID-19; Z79.1 Long term (current) use of non-steroidal anti-inflammatories (NSAID); Z79.899 Other long term (current) drug therapy
CPT/HCPCS: 36415; 70487; 80048; 80053; 80202; 82565; 83605; 85025; 85652; 86140; 87040; 87635; 96365; 96375; 99285; J0295; J0690; J1650; J1885; J2543; J2920; J3370; Q9967

== ENCOUNTER 2023-06-23 21:49 | Emergency (ER) | payer BC, SELFPAY ==
[2023-06-23 21:59] VITALS: BP 122/58; PULSE 94; RESP 14; TEMP 36.9; O2SAT 98
[2023-06-23 22:11] VITALS: BMI 41.1
[2023-06-23 22:20] VITALS: BP 128/80; PULSE 95; O2SAT 98
--- NOTE | 2023-06-23 22:20 | ED.BACK ---
HPI - Back Pain/Injury General Chief Complaint: Back Pain/Injury Stated Complaint: r-side pain/weakness,diff ambulating Time Seen by Provider: 06/23/23 22:01 Source: patient and old records reviewed Mode of arrival: EMS Limitations: no limitations History of Present Illness HPI Narrative: 27 yo female with PMH of obesity, low back pain, here with c/o 4 days of R low back pain radiating to buttock down R leg worse with movements and trying to walk. Sharp shooting pain no b/b incontinence no saddle anesthesia no IVDA no thinners. hx of same in past. No new trauma MD elicited complaint: back pain Pertinent past history: prior back pain Onset (ago): day(s) (4) Timing: constant Severity: severe Similar Symptoms Previously: Yes Quality: sharp Location: right lower back Radiation: buttocks and right leg below the knee Exacerbating factors: movement and walking Relieving factors: immobilization Context: unknown Associated symptoms: denies other symptoms Treatments prior to arrival: NSAIDS Work related injury: No Related Data Previous Rx's ?Medication ?Instructions ?Recorded diazepam 5 mg tablet (Valium) 5 mg PO TID PRN muscle spasm #12 06/23/23 tabs prednisone 20 mg tablet 40 mg (2 x 20 mg) PO DAILY 4 days 06/23/23 #8 tabs Allergies Allergy/AdvReac Type Severity Reaction Status Date / Time No Known Allergies Allergy Verified 06/23/23 22:11 Review of Systems Review of Systems: Constitutional : No Weight loss, No Fever, No Chills, ENT/Mouth : No Hearing loss, No Ear Pain, No Nasal Congestion, No Sinus Pain, No Hoarseness, No sore throat, No Rhinorrhea, No Swallowing Difficulty Cardiovascular : No Chest Pain, No SOB Respiratory : No Cough, No Dyspnea Gastrointestinal : No Nausea, No Vomiting, No Diarrhea, No abdominal Pain, No Hematochezia, No Melena Genitourinary : No Dysuria, No Urinary Frequency, No Hematuria, No Urinary Incontinence, Musculoskeletal : positive back pain Skin : No Skin Lesions, No rash Neuro : No Weakness, No Numbness, No Paresthesias, no loss of bowel or bladder incontinence, no saddle anesthesia all other systems reviewed and are negative PMFSH Past Medical History Attestation statement: The following information was validated with the patient. Source: old records reviewed Medical History Annual physical exam Overweight Surgical History Hx of bilateral breast reduction surgery Family History Family History Father Unknown family medical history Mother No problems noted. Maternal Uncle Diabetes mellitus Maternal Grandfather Diabetes mellitus Maternal Grandmother No problems noted. Paternal Grandfather No problems noted. Paternal Grandmother No problems noted. Sister No problems noted. Social History Social History Household Members: Other Household Members Other:: sister Housing: House Do you presently have visiting nurse or other home services: No Patient Tobacco Use Status: Never used Tobacco Smoked in Last 30 Days: No e-Cigarette/Vaping Use: Never Used Use of substances other than those prescribed or required for medical reasons: No Substance Use Type: Marijuana Advance Directives: Yes Advance Directives on File: Yes Advance Directives Date on File: 02/19/21 Do you have a plan to hurt others: No Plan service: No Current occupational status: employed Cognitive needs: No Hearing needs: No Vision needs: Yes Physical Exam Vital Signs: Vital Signs: Last Vital Signs Temp 98.4 F 06/23/23 21:59 Pulse 94 06/23/23 21:59 Resp 14 06/23/23 21:59 BP 122/58 L 06/23/23 21:59 Pulse Ox 98 06/23/23 21:59 O2 Del Method Room Air 06/23/23 21:59 BMI result Body Mass Index 41.1 Appearance: Alert. Oriented X3. No acute distress. Eyes: Pupils equal, round and reactive to light. ENT: Pharynx normal. Neck: Normal inspection. Neck supple. CVS: Normal heart rate and rhythm. Pulses normal. Respiratory: No respiratory distress. Breath sounds normal. Abdomen: Soft and nontender. Skin: Skin warm and dry. Normal skin color. Normal skin turgor. Extremities/Back: distal intact both legs L5/5 SILT intact inner thighs, ttp along R buttock and lower back area Neuro: Oriented X 3. No motor deficit. No sensory deficit. Medications Administered Discontinued Medications Generic Name Dose Route Start Last Admin Trade Name Freq PRN Reason Stop Dose Admin Diazepam 5 mg 06/23/23 22:30 06/23/23 22:44 Diazepam 5 Mg Tablet PO 06/23/23 22:31 5 mg ONCE ONE Administration Ketorolac Tromethamine 30 mg 06/23/23 22:30 06/23/23 22:44 Ketorolac Tromethamine 30 Mg/Ml Vial IM 06/23/23 22:31 30 mg ONCE ONE Administration Prednisone 40 mg 06/23/23 22:30 06/23/23 22:44 Prednisone 20 Mg Tablet PO 06/23/23 22:31 40 mg ONCE ONE Administration Medical Decision Making Medical Decision Making MDM Narrative: 27 yo female with PMH of obesity, low back pain, here with c/o R sided low back pain radiating down to the right buttock into the right leg hx of same in past at this time she is not on thinners has no b/b incontinence no saddle anesthesia no IVDA and is NV intact - will start on steroids, valium and pain control. Differential Diagnosis Differential Diagnoses: The differential diagnosis associated with the presentation includes back strain, sciatica Admission/Observation Consideration of admission/observation: Escalation of care including admission/observation considered feels much better able to get up and go to bathroom feels ready to go home Independent Historian Clinical information obtained from an independent historian. History obtained from or confirmed by: EMS External Record Review External record reviewed: Office record Tests considered The following testing was considered but not selected: xray but no fall doubt fracture Prescription Management I considered prescription management with: Pain Medication and Other Discharge Plan Discharge Clinical Impression: Sciatica Qualifiers: Laterality: right Qualified Code(s): M54.31 - Sciatica, right side Patient Disposition: Home, Self-Care Instructions: Sciatica (ED) Additional Instructions: call your doctor you will need physical therapy return for loss of control of bowel or bladder, worsening pain, numbness in genital area or any other concerns. Prescriptions: New prednisone 20 mg tablet 40 mg PO DAILY 4 Days Qty: 8 0RF diazepam [Valium] 5 mg tablet 5 mg PO TID PRN (Reason: muscle spasm) Qty: 12 0RF Rx Instructions: partial fill is okay Stand Alone Forms: Work/School Release Print Language: Mexican
[2023-06-23] MEDS: predniSONE 20 MG TABLET 40 MG PO (22:44)
[2023-06-23] MEDS: Ketorolac Tromethamine 30 MG/ML VIAL IM (22:44)
[2023-06-23] MEDS: diazePAM 5 MG TABLET PO (22:44)
[2023-06-24 00:35] VITALS: BP 122/58; PULSE 94; RESP 14; TEMP 36.9; O2SAT 98
== END 2023-06-24 00:36 | disposition home or self-care (01) ==
PROVIDERS: Emergency Provider Emergency Medicine
DX: M54.31 Sciatica, right side (principal); M54.50 Low back pain, unspecified
CPT/HCPCS: 96372; 99284; J1885

== ENCOUNTER 2023-06-25 09:49 | Outpatient (AMB) | payer BC, SELFPAY ==
[2023-06-25 09:54] VITALS: BP 140/90; PULSE 88; TEMP 36.4; O2SAT 97; BMI 40.6
--- NOTE | 2023-06-25 09:54 | MHC.OFFWIV ---
Intake Vital Signs 06/25/23 09:54 Height 4 ft 11 in Weight 201 lb BMI 40.6 BP 140/90 H Blood Pressure Location Lt brachial Position Sitting Pulse 88 Pulse Source Pulse Oximeter Temp 97.5 F Temp Source Temporal Artery Scan Pulse Oximetry (%) 97 Oxygen Delivery Method Room Air Intake Visit Reasons: EST/right lower back pain ([phone]) Intake Note: pt is here today for rt lower back pain started 2 weeks ago Patient Tobacco Use Status: Never used Tobacco Allergies No Known Allergies Allergy (Verified 06/25/23 09:56) Do you need a note to return to daycare/school/sports/work: No HPI HPI Comments History of Present Illness Details 27-year-old female complaining of right-sided low back pain with paresthesias in her right lower extremity. She states the pain radiates through her sciatic notch posterior thigh. She denies any particular injury or trauma to the area she has had a few similar events but nothing with these paresthesias. She did have an x-ray in the past that was unremarkable for any bony abnormalities [facility] Medical History Annual physical exam Overweight Surgical History Hx of bilateral breast reduction surgery Family History Father Unknown family medical history Mother No problems noted. Maternal Uncle Diabetes mellitus Maternal Grandfather Diabetes mellitus Maternal Grandmother No problems noted. Paternal Grandfather No problems noted. Paternal Grandmother No problems noted. Sister No problems noted. Social History Household Members: Other Household Members Other:: sister Housing: House Do you presently have visiting nurse or other home services: No Patient Tobacco Use Status: Never used Tobacco e-Cigarette/Vaping Use: Never Used Substance Use Type: Marijuana Advance Directives Date on File: 02/19/21 service: No Current occupational status: employed Cognitive needs: No Hearing needs: No Vision needs: Yes Review of Systems Const All systems reviewed & are unremarkable except as noted in HPI and below Physical Exam Vital Signs: Last Vital Signs Temp 97.5 F 06/25/23 09:54 Pulse 88 06/25/23 09:54 BP 140/90 H 06/25/23 09:54 Pulse Ox 97 06/25/23 09:54 Oxygen Delivery Method Room Air 06/25/23 09:54 BMI result Body Mass Index 40.6 Const General: acute distress mild HEENT Head: Yes normal to inspection, Yes normocephalic and Yes atraumatic Ears: hearing grossly normal bilaterally, external ears normal and TM's normal bilaterally General nose exam: Normal external nose present Face and sinus: Yes normal facial exam Resp Effort & Inspection: normal respiratory effort Auscultation: clear to auscultation bilaterally Cardio Rate: regular rate Rhythm: regular rhythm General: Yes no CVA tenderness Back/Spine/Pelvis Back: no CVA tenderness Thoracic/Lumbar Spine: bend over test abnormal, paraspinal muscle tenderness and straight leg raise positive Results AMB Urinalysis, Automated UA Leukoctes 0 Clement/uL Last Edit by Sakina Morales MA on 06/25/23 10:25 UA Nitrite Negative Last Edit by Sakina Morales MA on 06/25/23 10:25 UA Urobilinogen 0.2 mg/dL Last Edit by Sakina Morales MA on 06/25/23 10:25 UA Protein 15 mg/dL Last Edit by Sakina Morales MA on 06/25/23 10:25 UA pH 5.5 Last Edit by Sakina Morales MA on 06/25/23 10:25 UA Blood 0 Bandar/uL Last Edit by Sakina Morales MA on 06/25/23 10:25 UA Specific [place] 1.030 Last Edit by Sakina Morales MA on 06/25/23 10:25 UA Ketone Positive Last Edit by Sakina Morales MA on 06/25/23 10:25 UA Bilirubin 1 mg/dL Last Edit by Sakina Morales MA on 06/25/23 10:25 UA Glucose 0 mg/dL Last Edit by Sakina Morales MA on 06/25/23 10:25 Results Reviewed Results Reviewed: Laboratory Last Values Urine pH (Auto) 5.5 06/25/23 10:24 Specific [place] (Auto) 1.030 06/25/23 10:24 Urine Protein (Auto) 15 mg/dL 05/08/24 10:24 Glucose (UA)(Auto) 0 mg/dL 06/25/23 10:24 Urine Ketones (Auto) Positive 06/25/23 10:24 Urine Blood (Auto) 0 [place]/uL 06/25/23 10:24 Urine Nitrite (Auto) Negative 06/25/23 10:24 Urine Bilirubin (Auto) 1 mg/dL 06/25/23 10:24 Urine Urobilinogen (Auto) 0.2 mg/dL 06/25/23 10:24 Leukocyte Esterase (Auto) 0 Clement/uL 06/25/23 10:24 Assessment & Plan Assessment & Plan (1) Lumbar radiculopathy: Code(s): M54.16 - Radiculopathy, lumbar region Plan: The patient was put on a Medrol Dosepak to hopefully decrease inflammation around the nerve impingement. I recommended that she see her PCP for physiatry referral or a spine center referral. Plan See plan Medications: New prednisone prednisone 5 mg: take 8 tablets (40 mg) on Day 1; 7 tablets (35 mg) on Day 2; then decrease by 1 tablet every day until finished PO 36 ea 0RF Coding Level of Care Code Est Pt Level 3 (37473) Diagnoses Lumbar radiculopathy M54.16
== END 2023-06-25 10:47 | disposition home or self-care (01) ==
PROVIDERS: Visit Provider Physician Assistant Medical
DX: M54.16 Radiculopathy, lumbar region (principal)
CPT/HCPCS: 99213

== ENCOUNTER 2023-12-08 08:40 | Outpatient (REF) | payer BC, SELFPAY ==
[2023-12-11 16:53] LABS: HPV mRNA E6/E7 Detected (Not Detected)
== END 2023-12-08 08:41 | disposition home or self-care (01) ==
LOC: HO.LAB 08:40
PROVIDERS: PCP Internal Medicine; Visit Provider Internal Medicine
DX: Z00.00 Encounter for general adult medical examination without abnormal findings (principal)
CPT/HCPCS: 87624; 88175; 96127

== ENCOUNTER 2023-12-08 08:40 | Outpatient (AMB) | payer BC, SELFPAY ==
--- NOTE | 2023-12-08 08:44 | A.OFFPC_ITS ---
Vital Signs 12/08/23 08:45 Height 4 ft 11 in Weight 217 lb BMI 43.8 BP 120/76 Blood Pressure Location Lt brachial Position Sitting Pulse 90 Pulse Source Pulse Oximeter Pulse Oximetry (%) 99 Oxygen Delivery Method Room Air Intake Visit Reasons: Annual PE Intake Note: Pt is here today for PE. Allergies No Known Allergies Allergy (Verified 12/08/23 08:46) Medication List - Last Reconciled 12/08/23 by Monisha Contreras MD No Known Home Meds Tobacco use date assessed: 12/08/23 Dental Screening Dental Screen Date: 12/08/23 Did you have a dental visit in the last 12 months?: Yes Did you have a dental problem in the last 6 months where you did not have access to dental care?: No Was dental information given to patient?: Patient has dentist HPI Annual PE HPI Details Pt presents for PE. Patient has not had her period since the end of July. She has not been sexually active. Patient gained 15 lb since June. She has been exercising regularly. She complains of recurrent hidradenitis in axillary and groin area. [facility] Medical History (Updated 12/08/23 @ 09:36 by Monisha Contreras MD) Annual physical exam Overweight Surgical History Hx of bilateral breast reduction surgery Family History Father Unknown family medical history Mother No problems noted. Maternal Uncle Diabetes mellitus Maternal Grandfather Diabetes mellitus Maternal Grandmother No problems noted. Paternal Grandfather No problems noted. Paternal Grandmother No problems noted. Sister No problems noted. Social History Household Members: Other Household Members Other:: sister Housing: House Do you presently have visiting nurse or other home services: No Patient Tobacco Use Status: Never used Tobacco e-Cigarette/Vaping Use: Never Used Substance Use Type: Marijuana Advance Directives Date on File: 02/19/21 service: No Current occupational status: employed Cognitive needs: No Hearing needs: No Vision needs: Yes Questionnaire PHQ-9 Over the last 2 weeks, how often have you been bothered by any of the following problems? 1. Little interest or pleasure in doing things: not at all 2. Feeling down, depressed, or hopeless: not at all 3. Trouble falling or staying asleep, or sleeping too much: not at all 4. Feeling tired or having little energy: not at all 5. Poor appetite or overeating: not at all 6. Feeling bad about yourself - or that you are a failure or have let yourself or your family down: not at all 7. Trouble concentrating on things, such as reading the newspaper or watching television: not at all 8. Moving or speaking so slowly that other people could have noticed. Or the opposite - being so fidgety or restless that you have been moving around a lot more than usual: not at all 9. Thoughts that you would be better off or of hurting yourself in some way: not at all Total score: 0 Depression Screening Interpretation: Negative Depression Screening Done: Yes 38428 - PHQ-9 Billing: Yes Source: Developed by Drs. Michoacano Alvarado, Jacinda Ribera, Vin Luong and colleagues, with an educational noemi from [employer]. Thrive Questionnaire Date Thrive assessed: 12/08/23 I am a: Patient What is your living situation today?: I have a steady place to live Within the past 12 months, did the food you bought not last and you didn't have the money to get more?: Never true Within the past 12 months, did you worry whether your food would run out before you got money to buy more?: Never true Do you have trouble paying for medicines?: No Do you have trouble getting transportation to medical appointments?: No Do you have trouble paying your heating and electricity bill?: No Do you have trouble taking care of your child, family member or friend?: No Do you have trouble with day-to-day activities such as bathing, preparing meals, shopping, managing finances, etc.?: No Are you currently unemployed and looking for a job?: No Are you interested in more education?: No Please select the resources that you would like help with: None Currently or been in a relationship where the following occur: No concerns reported THRIVE Score: 0 AUDIT C Alcohol Use Questionnaire (AUDIT-C) 1. How often do you have a drink containing alcohol?: 2-4 times a month 2. How many drinks containing alcohol do you have on a typical day when you are drinking?: 1 or 2 3. How often do you have six or more drinks on one occasion?: Less than monthly Total Score: 3 PADMAJA-7 AMB Questionnaire PADMAJA-7 Date PADMAJA - 7 assessed: 12/08/23 Feeling nervous, anxious, or on edge: 1 = Several days Not being able to stop or control worryin = Several days Worrying too much about different things: 0 = Not at all Trouble relaxin = Several days Being so restless that it is hard to sit still: 0 = Not at all Becoming easily annoyed or irritable: 1 = Several days Feeling afraid as if something awful might happen: 0 = Not at all Total PADMAJA-7 score (0-4 normal; 5-9 mild; 10-14 moderate; 15-21 severe): 4 Source: Developed by Drs. Michoacano Alvarado, Jacinda Ribera, Vin Luong and colleagues, with an educational noemi from [employer]. PADMAJA-7 Assessment Billing PADMAJA-7 Assessment Tool: PADMAJA-7 Assessment 94301 Review of Systems Const All systems reviewed & are unremarkable except as noted in HPI and below Reports no additional complaints Eyes Reports no additional complaints ENT Reports no additional complaints Card Reports no additional complaints Resp Reports no additional complaints GI Reports no additional complaints Reports no additional complaints Musc Reports no additional complaints Physical exam (Primary Care) Vital Signs: Last Vital Signs Pulse 90 12/08/23 08:45 BP 120/76 12/08/23 08:45 Pulse Ox 99 12/08/23 08:45 Oxygen Delivery Method Room Air 12/08/23 08:45 BMI result Body Mass Index 43.8 Tobacco/Smoking Status: Tobacco use Status Tobacco use date assessed 12/08/23 12/08/23 08:50 Patient Tobacco Use Status Never used Tobacco 12/08/23 08:50 e-Cigarette/Vaping Use Never Used 12/08/23 08:50 PHQ-9: PHQ-9 Score PHQ-9: Total score 0 12/08/23 09:11 Depression Screening Interpretation: Negative Thrive Assessment: Date of Thrive Assessment Date Thrive assessed 12/08/23 12/08/23 08:50 Currently or been in a relationship where the following occur: No concerns reported Const General: no acute distress HENMT Head: Yes normal to inspection Ears: hearing grossly normal bilaterally Face and sinus: Yes normal facial exam Throat: Yes posterior oropharynx normal Eyes General: appearance normal, both eyes and all related structures Neck Neck: Yes no lymphadenopathy and Yes supple Resp Effort & Inspection: normal respiratory effort Auscultation: clear to auscultation bilaterally Cardio Rhythm: regular rhythm Heart sounds: S1 normal heart sound present and S2 normal heart sound present GI Inspection: Yes normal to inspection Palpation (GI): Soft to palpation Percussion: Yes normal to percussion Auscultation: normal bowel sounds External Female Exam: normal external appearance Speculum Exam - Cervix: normal appearance of the cervix Bimanual exam- vagina & uterus: normal bimanual exam Skin Other: Scarring, discoloration and multiple subcutaneous nodules, no erythema warmth or tenderness in both axillary and inguinal regions Coding Level of Care Code Est Pt Prev Care 18-39y(93556) Diagnoses Annual physical exam Z00.00 Hidradenitis axillaris L73.2 Morbidly obese E66.01 Amenorrhea N91.2 Additional Codes PADMAJA-7 Assessment Billing - PADMAJA-7 Assessment Tool: PADMAJA-7 Assessment 11890 ([id number]) Assessment & Plan Assessment & Plan (1) Annual physical exam: Code(s): Z00.00 - Encounter for general adult medical examination without abnormal findings Category: Medical Plan: Well-balanced diet regular physical activity weight loss discussed with the patient, Pap smear was done today patient will have a blood work (2) Hidradenitis axillaris: Code(s): L73.2 - Hidradenitis suppurativa Category: Medical Plan: Spironolactone 50 mg daily as prescribed follow-up in 1 month. Patient was advised to use antibacterial soap (3) Morbidly obese: Code(s): E66.01 - Morbid (severe) obesity due to excess calories Category: Medical Plan: Weight loss discussed with the patient referred to scrap baller (4) Amenorrhea: Code(s): N91.2 - Amenorrhea, unspecified Category: Medical Plan: Check blood work including TSH LH and FSH level, weight loss discussed with the patient. Orders: Orders TSH reflex Free T4 Today Z00.00 - Encounter for general adult medical examination without abnormal findings UA w Microscopic Today Z00.00 - Encounter for general adult medical examination without abnormal findings Complete Blood Count Auto Diff Today Z00.00 - Encounter for general adult medical examination without abnormal findings Follicle Stimulating Hormone Today N91.2 - Amenorrhea, unspecified Lutenizing Hormone Today N91.2 - Amenorrhea, unspecified PAP + HPV E6/E7 Today Z00.00 - Encounter for general adult medical examination without abnormal findings Comprehensive Fancy Gap. Panel Fast Today Z00.00 - Encounter for general adult medical examination without abnormal findings Lipid Panel Today Z00.00 - Encounter for general adult medical examination without abnormal findings Referrals Nutrition/Dietitian Referral E66.01 - Morbid (severe) obesity due to excess calories Medications: New spironolactone 50 mg PO DAILY 30 tabs 1RF
[2023-12-08 08:45] VITALS: BP 120/76; PULSE 90; O2SAT 99; BMI 43.8
== END 2023-12-08 09:44 | disposition home or self-care (01) ==
PROVIDERS: PCP Internal Medicine; Visit Provider Internal Medicine
DX: Z00.00 Encounter for general adult medical examination without abnormal findings (principal); L73.2 Hidradenitis suppurativa; E66.813 Obesity, class 3; Z68.41 Body mass index [BMI] 40.0-44.9, adult; N91.2 Amenorrhea, unspecified

== ENCOUNTER 2023-12-08 09:49 | Outpatient (REF) | payer BC, SELFPAY ==
[2023-12-08 10:42] LABS: MANUAL DIFF FLAG NO
[2023-12-08 10:49] LABS: Basophils Percent Auto 0.4 % (0-2); Eosinophils Absolute Auto 0.1 X10*3/uL (0.0-0.4); Eosinophils Percent Auto 1.3 % (0-4); Hematocrit 37.9 % (37.0-47.0); Hemoglobin 12.3 g/dl (12.0-16.0); Imm Gran Abs Auto 0.02 X10*3/uL (0.00-0.03); Imm Gran Pct Auto 0.3 % (0.0-0.4); Lymphocytes Absolute Auto 2.6 X10*3/uL (1.2-4.9); Lymphocytes Percent Auto 33.9 % (20-40); Mean Corpuscular HGB Conc 32.5 g/dl (31.0-35.0); Mean Corpuscular Hemoglobin 26.3 pg (27.0-33.0); Mean Platelet Volume 10.1 fL (9.4-12.3); Monocytes Absolute Auto 0.4 X10*3/uL (0.1-1.2); Monocytes Percent Auto 5.7 % (2-11); Neutrophils Absolute Auto 4.4 x10*3/uL (2.0-8.3); Neutrophils Percent Auto 58.4 % (45-73); Platelet Count 374 X10*3/uL (160-400); Red Blood Count 4.68 X10*6/uL (4.20-5.50); Red Cell Distribution Width 13.2 % (11.0-16.0); White Blood Count 7.6 X10*3/uL (4.8-10.8)
[2023-12-08 11:25] LABS: Alanine Aminotransferase 23 U/L (0-31); Alkaline Phosphatase 89 U/L (39-117); Anion Gap 10 (12-20); Aspartate Amino Transferase 22 U/L (5-31); Bilirubin Total 0.3 mg/dL (0.0-1.0); Blood Urea Nitrogen 13 mg/dL (9-16); Calcium 9.6 mg/dL (8.4-10.2); Carbon Dioxide 27 mmol/L (22-29); Chloride 106 mmol/L (96-108); Cholesterol 178 mg/dL (<200); Estimated Glomerular Filt Rate > 60; Glucose Fasting 102 mg/dL (60-99); HDL Cholesterol 36 mg/dL (>40); LDL Cholesterol Calculated 120 mg/dL (<100); Sodium 139 mmol/L (135-145); Total Protein 7.5 g/dL (6.5-8.0); Triglycerides 111 mg/dL (<150)
[2023-12-08 11:51] LABS: TSH reflex Free T4 1.52 uIU/mL (0.32-4.0)
[2023-12-08 11:56] LABS: Appearance Urine Clear; Color Urine Yellow; Glucose Urine UA Negative (Negative); Leukocyte Esterase Urine Negative (Negative); Nitrite Urine Negative (Negative); PH 5.5 (5.0-9.0); Urine Blood Negative (Negative); Urine Ketones Negative (Negative); Urine Protein Negative (Neg-Trace)
[2023-12-08 12:08] LABS: Bacteria Urine None Seen (None Seen); Hyaline Casts Urine 0-2 /LPF (0-2); RBC Urine 0-2 /HPF (0-2); WBC Urine 0-5 /HPF (0-5)
[2023-12-09 10:44] LABS: Lutenizing Hormone 4.2 mIU/mL
== END 2023-12-08 09:50 | disposition home or self-care (01) ==
LOC: HO.10HDL 09:49
PROVIDERS: Visit Provider Internal Medicine
DX: Z00.00 Encounter for general adult medical examination without abnormal findings (principal); N91.2 Amenorrhea, unspecified
CPT/HCPCS: 36415; 80053; 80061; 81001; 83001; 83002; 84443; 85025

== ENCOUNTER 2024-01-09 10:31 | Outpatient (AMB) | payer BC, SELFPAY ==
--- NOTE | 2024-01-09 10:33 | A.OFFPC_ITS ---
Vital Signs 01/09/24 10:34 Height 4 ft 11 in Weight 210 lb BMI 42.4 BP 112/70 Blood Pressure Location Lt brachial Position Sitting Pulse 102 H Pulse Source Pulse Oximeter Pulse Oximetry (%) 98 Oxygen Delivery Method Room Air Intake Visit Reasons: 1m follow up Intake Note: Pt is here today for 1 month follow up visit. Allergies No Known Allergies Allergy (Verified 01/09/24 10:36) Medication List - Last Reconciled 01/09/24 by Monisha Contreras MD spironolactone 50 mg PO DAILY Tobacco use date assessed: 01/09/24 Dental Screening Dental Screen Date: 12/08/23 HPI 1m follow up HPI Details Patient presents for the follow-up. She has been tolerating spironolac tone well but reports persistent swollen lesions in both axillary areas. She denies recent infection. [facility] Medical History Annual physical exam Overweight Surgical History Hx of bilateral breast reduction surgery Family History Father Unknown family medical history Mother No problems noted. Maternal Uncle Diabetes mellitus Maternal Grandfather Diabetes mellitus Maternal Grandmother No problems noted. Paternal Grandfather No problems noted. Paternal Grandmother No problems noted. Sister No problems noted. Social History Household Members: Other Household Members Other:: sister Housing: House Do you presently have visiting nurse or other home services: No Patient Tobacco Use Status: Never used Tobacco e-Cigarette/Vaping Use: Never Used Substance Use Type: Marijuana Advance Directives Date on File: 02/19/21 service: No Current occupational status: employed Cognitive needs: No Hearing needs: No Vision needs: Yes Questionnaire Thrive Questionnaire Date Thrive assessed: 12/08/23 I am a: Patient What is your living situation today?: I have a steady place to live Within the past 12 months, did the food you bought not last and you didn't have the money to get more?: Never true Within the past 12 months, did you worry whether your food would run out before you got money to buy more?: Never true Do you have trouble paying for medicines?: No Do you have trouble getting transportation to medical appointments?: No Do you have trouble paying your heating and electricity bill?: No Do you have trouble taking care of your child, family member or friend?: No Do you have trouble with day-to-day activities such as bathing, preparing meals, shopping, managing finances, etc.?: No Are you currently unemployed and looking for a job?: No Are you interested in more education?: No Please select the resources that you would like help with: None Currently or been in a relationship where the following occur: No concerns reported THRIVE Score: 0 PADMAJA-7 AMB Questionnaire PADMAJA-7 Date PADMAJA - 7 assessed: 12/08/23 Source: Developed by Drs. Michoacano Alvarado, Jacinda Ribera, Vin Luong and colleagues, with an educational noemi from [employer]. Review of Systems Const All systems reviewed & are unremarkable except as noted in HPI and below ENT Reports no additional complaints Card Reports no additional complaints Resp Reports no additional complaints Reports no additional complaints Physical exam (Primary Care) Vital Signs: Last Vital Signs Pulse 102 H 01/09/24 10:34 BP 112/70 01/09/24 10:34 Pulse Ox 98 01/09/24 10:34 Oxygen Delivery Method Room Air 01/09/24 10:34 BMI result Body Mass Index 42.4 Tobacco/Smoking Status: Tobacco use Status Tobacco use date assessed 01/09/24 01/09/24 10:39 Patient Tobacco Use Status Never used Tobacco 01/09/24 10:34 e-Cigarette/Vaping Use Never Used 01/09/24 10:34 Thrive Assessment: Date of Thrive Assessment Date Thrive assessed 12/08/23 01/09/24 10:34 Currently or been in a relationship where the following occur: No concerns reported Const General: no acute distress HENMT Head: Yes normal to inspection Face and sinus: Yes normal facial exam Throat: Yes posterior oropharynx normal Chest Breast/axilla inspection: abnormal inspection of the axilla (Bilateral axillary skin scarring no active skin abscesses) Resp Effort & Inspection: normal respiratory effort Auscultation: clear to auscultation bilaterally Cardio Rhythm: regular rhythm Heart sounds: S1 normal heart sound present and S2 normal heart sound present Coding Level of Care Code Est Pt Level 3 (75547) Diagnoses Hidradenitis axillaris L73.2 Morbidly obese E66.01 Assessment & Plan Assessment & Plan (1) Hidradenitis axillaris: Code(s): L73.2 - Hidradenitis suppurativa Category: Medical Plan: Increase spironolactone to 100 mg check basic metabolic panel. Local care discussed with the patient (2) Morbidly obese: Comment: BMI 42.4 01/10 Code(s): E66.01 - Morbid (severe) obesity due to excess calories Category: Medical Plan: INCREASING PHYSICAL ACTIVITY DECREASING CALORIC INTAKE AND WEIGHT LOSS DISCUSSED WITH THE PATIENT. She is planning to start weight watchers program Orders: Orders Basic Metabolic Panel 2 Weeks L73.2 - Hidradenitis suppurativa Medications: New spironolactone 100 mg PO DAILY 90 tabs 0RF Discontinued spironolactone Discontinued Reason: Doctor's Order 50 mg PO DAILY 30 tabs 1RF
[2024-01-09 10:34] VITALS: BP 112/70; PULSE 102; O2SAT 98; BMI 42.4
== END 2024-01-09 11:32 | disposition home or self-care (01) ==
LOC: HO.HMCC 10:31
PROVIDERS: PCP Internal Medicine; Visit Provider Internal Medicine
DX: L73.2 Hidradenitis suppurativa (principal); E66.01 Morbid (severe) obesity due to excess calories; Z68.41 Body mass index [BMI] 40.0-44.9, adult

== ENCOUNTER 2024-04-21 16:03 | Outpatient (REF) | payer BC, SELFPAY ==
[2024-04-21 18:05] LABS: Anion Gap 12 (12-20); Blood Urea Nitrogen 16 mg/dL (9-16); Calcium 9.6 mg/dL (8.4-10.2); Carbon Dioxide 28 mmol/L (22-29); Chloride 104 mmol/L (96-108); Estimated Glomerular Filt Rate > 60; Glucose Random 81 mg/dL (60-115); Potassium 3.7 mmol/L (3.3-5.1); Sodium 140 mmol/L (135-145)
== END 2024-04-21 16:04 | disposition home or self-care (01) ==
LOC: HO.LAB 16:03
PROVIDERS: PCP Internal Medicine; Visit Provider Internal Medicine
DX: L73.2 Hidradenitis suppurativa (principal)
CPT/HCPCS: 36415; 80048

== ENCOUNTER 2024-05-10 13:03 | Outpatient (AMB) | payer BC, SELFPAY ==
[2024-05-10 13:08] VITALS: BP 106/60; PULSE 91; RESP 20; TEMP 37.1; O2SAT 98; BMI 41.8
--- NOTE | 2024-05-10 13:08 | MHC.PC.OV ---
Vital Signs 05/10/24 13:08 Height 4 ft 11 in Weight 207 lb BMI 41.8 BP 106/60 Blood Pressure Location Rt brachial Position Sitting Respiration 20 Pulse 91 Pulse Source Pulse Oximeter Temp 98.7 F Temp Source Oral Pulse Oximetry (%) 98 Oxygen Delivery Method Room Air Intake Visit Reasons: 4 months f/up Intake Note: Pt is here today for 4 months follow up visit. Allergies No Known Allergies Allergy (Verified 05/10/24 13:11) Medication List - Last Reconciled 05/10/24 by Monisha Contreras MD spironolactone 100 mg PO DAILY Tobacco use date assessed: 05/10/24 Dental Screening Dental Screen Date: 05/10/24 Did you have a dental visit in the last 12 months?: Yes Did you have a dental problem in the last 6 months where you did not have access to dental care?: No Was dental information given to patient?: Patient has dentist HPI 4 months f/up HPI Details Patient presents for the follow-up of hidradenitis axillaris improved on spironolactone. She has been exercising and lost 10 lb since last visit. [facility] Medical History Annual physical exam Overweight Surgical History Hx of bilateral breast reduction surgery Family History Father Unknown family medical history Mother No problems noted. Maternal Uncle Diabetes mellitus Maternal Grandfather Diabetes mellitus Maternal Grandmother No problems noted. Paternal Grandfather No problems noted. Paternal Grandmother No problems noted. Sister No problems noted. Social History Household Members: Other Household Members Other:: sister Housing: House Do you presently have visiting nurse or other home services: No Patient Tobacco Use Status: Never used Tobacco e-Cigarette/Vaping Use: Never Used Substance Use Type: Marijuana Advance Directives Date on File: 02/19/21 service: No Current occupational status: employed Cognitive needs: No Hearing needs: No Vision needs: Yes Questionnaire PHQ-9 Over the last 2 weeks, how often have you been bothered by any of the following problems? 1. Little interest or pleasure in doing things: not at all 2. Feeling down, depressed, or hopeless: not at all 3. Trouble falling or staying asleep, or sleeping too much: not at all 4. Feeling tired or having little energy: not at all 5. Poor appetite or overeating: not at all 6. Feeling bad about yourself - or that you are a failure or have let yourself or your family down: not at all 7. Trouble concentrating on things, such as reading the newspaper or watching television: not at all 8. Moving or speaking so slowly that other people could have noticed. Or the opposite - being so fidgety or restless that you have been moving around a lot more than usual: not at all 9. Thoughts that you would be better off or of hurting yourself in some way: not at all Total score: 0 Depression Screening Interpretation: Negative Depression Screening Done: Yes 32900 - PHQ-9 Billing: Yes Source: Developed by Drs. Michoacano Alvarado, Jacinda Ribera, Vin Luong and colleagues, with an educational noemi from [employer]. Thrive Questionnaire Date Thrive assessed: 05/10/24 I am a: Patient What is your living situation today?: I have a steady place to live Within the past 12 months, did the food you bought not last and you didn't have the money to get more?: Never true Within the past 12 months, did you worry whether your food would run out before you got money to buy more?: Never true Do you have trouble paying for medicines?: No Do you have trouble getting transportation to medical appointments?: No Do you have trouble paying your heating and electricity bill?: No Do you have trouble taking care of your child, family member or friend?: No Do you have trouble with day-to-day activities such as bathing, preparing meals, shopping, managing finances, etc.?: No Are you currently unemployed and looking for a job?: No Are you interested in more education?: No THRIVE Score: 0 AUDIT C Alcohol Use Questionnaire (AUDIT-C) 1. How often do you have a drink containing alcohol?: 2-4 times a month 2. How many drinks containing alcohol do you have on a typical day when you are drinking?: 1 or 2 3. How often do you have six or more drinks on one occasion?: Never Total Score: 2 PADMAJA-7 AMB Questionnaire PADMAJA-7 Date PADMAJA - 7 assessed: 05/10/24 Feeling nervous, anxious, or on edge: 0 = Not at all Not being able to stop or control worryin = Not at all Worrying too much about different things: 0 = Not at all Trouble relaxin = Not at all Being so restless that it is hard to sit still: 0 = Not at all Becoming easily annoyed or irritable: 0 = Not at all Feeling afraid as if something awful might happen: 0 = Not at all Total PADMAJA-7 score (0-4 normal; 5-9 mild; 10-14 moderate; 15-21 severe): 0 Source: Developed by Drs. Michoacano Alvarado, Jacinda Ribera, Vin Luong and colleagues, with an educational noemi from [employer]. PADMAJA-7 Assessment Billing PADMAJA-7 Assessment Tool: PADMAJA-7 Assessment 94046 Review of Systems Const All systems reviewed & are unremarkable except as noted in HPI and below Eyes Reports no additional complaints ENT Reports no additional complaints Card Reports no additional complaints Resp Reports no additional complaints GI Reports no additional complaints Reports no additional complaints Physical exam (Primary Care) Vital Signs: Last Vital Signs Temp 98.7 F 05/10/24 13:08 Pulse 91 05/10/24 13:08 Resp 20 05/10/24 13:08 BP 106/60 05/10/24 13:08 Pulse Ox 98 05/10/24 13:08 Oxygen Delivery Method Room Air 05/10/24 13:08 BMI result Body Mass Index 41.8 Tobacco/Smoking Status: Tobacco use Status Tobacco use date assessed 05/10/24 05/10/24 13:14 Patient Tobacco Use Status Never used Tobacco 05/10/24 13:14 e-Cigarette/Vaping Use Never Used 05/10/24 13:08 PHQ-9: PHQ-9 Score PHQ-9: Total score 0 05/10/24 13:16 Depression Screening Interpretation: Negative Thrive Assessment: Date of Thrive Assessment Date Thrive assessed 05/10/24 05/10/24 13:16 Const General: no acute distress HENMT Face and sinus: Yes normal facial exam Resp Effort & Inspection: normal respiratory effort Auscultation: clear to auscultation bilaterally Cardio Rhythm: regular rhythm Heart sounds: S1 normal heart sound present and S2 normal heart sound present Skin Other: There is scarring in the axillary regions Coding Level of Care Code Est Pt Level 3 (24114) Diagnoses Hidradenitis axillaris L73.2 Morbidly obese E66.01 Additional Codes PADMAJA-7 Assessment Billing - PADMAJA-7 Assessment Tool: PADMAJA-7 Assessment [id number] ([id number]) PHQ-9 - 74781 - PHQ-9 Billing: Yes ([id number]) Assessment & Plan Assessment & Plan (1) Hidradenitis axillaris: Code(s): L73.2 - Hidradenitis suppurativa Category: Medical Plan: Continue spironolactone referred to Dermatology (2) Morbidly obese: Comment: BMI 42.4 1124 Code(s): E66.01 - Morbid (severe) obesity due to excess calories Category: Medical Plan: Continue decreasing caloric intake increasing physical activity weight loss discussed with the patient. She requested referral to senior construction estimator for routine pelvic exam Orders: Orders Comprehensive [place]. Panel Fast 6 Months E66.01 - Morbid (severe) obesity due to excess calories, Z00.00 - Encounter for general adult medical examination without abnormal findings Lipid Panel 6 Months E66.01 - Morbid (severe) obesity due to excess calories, Z00.00 - Encounter for general adult medical examination without abnormal findings DHEA, Unconjugated 6 Months E66.01 - Morbid (severe) obesity due to excess calories, L68.0 - Hirsutism, Z00.00 - Encounter for general adult medical examination without abnormal findings Complete Blood Count Auto Diff 6 Months E66.01 - Morbid (severe) obesity due to excess calories, Z00.00 - Encounter for general adult medical examination without abnormal findings Referrals Dermatology Referral L73.2 - Hidradenitis suppurativa PHYSICIAN/ALLERGY/IMMUNOLOGY Referral Z00.00 - Encounter for general adult medical examination without abnormal findings
== END 2024-05-10 14:46 | disposition home or self-care (01) ==
LOC: HO.HMCC 13:03
PROVIDERS: PCP Internal Medicine; Visit Provider Internal Medicine
DX: L73.2 Hidradenitis suppurativa (principal); E66.01 Morbid (severe) obesity due to excess calories; Z68.41 Body mass index [BMI] 40.0-44.9, adult

== ENCOUNTER → 2024-05-10 13:03 | Outpatient (BNVA) | payer BC, SELFPAY | PROVIDERS: PCP Internal Medicine; Visit Provider Internal Medicine | DX: L73.2 Hidradenitis suppurativa (principal); E66.01 Morbid (severe) obesity due to excess calories; Z68.41 Body mass index [BMI] 40.0-44.9, adult | CPT/HCPCS: 96127 ==